=== PATIENT | female | born 1990 | race Caucasian/White ===

== ENCOUNTER 2017-01-17 19:37 | Emergency (ER) | payer MEDICAID, OTHER ==
[2017-01-17 19:39] VITALS: BP 134/74; PULSE 114; RESP 20; TEMP 98.1; O2SAT 99
[2017-01-17 21:09] LABS: AUTOMATED NEUTROPHIL # 8.2 TH/MM3 (1.8-7.7); BASOPHIL % 0.4 % (0.0-2.0); EOSINOPHIL % 0.2 % (0.0-4.0); HEMO FLAGS DIFF FINAL; LYMPH % 14.3 % (9.0-44.0); LYMPHOCYTE # 1.5 TH/MM3 (1.0-4.8); MEAN CELL VOLUME 97.1 FL (80.0-100.0); MEAN CORPUSCULAR HEMOGLOBIN 33.2 PG (27.0-34.0); MEAN CORPUSCULAR HGB CONC 34.2 % (32.0-36.0); MONO % 4.9 % (0.0-8.0); NEUT % 80.2 % (16.0-70.0); PLATELET COUNT 259 TH/MM3 (150-450); RED BLOOD COUNT 4.43 MIL/MM3 (4.00-5.30); RED CELL DISTRIBUTION WIDTH 12.6 % (11.6-17.2); WHITE BLOOD COUNT 10.2 TH/MM3 (4.0-11.0)
[2017-01-17 21:38] LABS: ANION GAP 7 MEQ/L (5-15)
[2017-01-17 21:42] LABS: ALKALINE PHOSPHATASE 51 U/L (45-117); ALT (GPT) 17 U/L (10-53); AST (GOT) 10 U/L (15-37); BLOOD UREA NITROGEN 9 MG/DL (7-18); CHLORIDE 104 MEQ/L (98-107); GLOMERULAR FILTRATION RATE 79 ML/MIN (>89); POTASSIUM 3.8 MEQ/L (3.5-5.1); SODIUM (NA) 138 MEQ/L (136-145); TOTAL BILIRUBIN ADULT 1.8 MG/DL (0.2-1.0)
[2017-01-17 21:46] LABS: AMPHETAMINE, URINE NEG (NEG); BARBITURATES, URINE NEG (NEG); COCAINE, URINE NEG (NEG)
--- NOTE | 2017-01-17 21:50 | PD ---
HPI Chief Complaint: Psychiatric Symptoms Time Seen by Provider: 21:43 Travel History International Travel<30 days: No Contact w/Intl Traveler<30days: No Traveled to known affect area: No History of Present Illness HPI 26 year old white female presents to emergency department with her mother for evaluation. The patient and her mother are requesting a psychological evaluation. According to the patient she's been feeling increasingly depressed and having hallucinations. She states that she is hearing voices persecution. She admits to having suicidal thoughts but no plan. Mother states that she seems delusional and seems to be having some adventism preoccupation. She states that she had stated that she was going to lay her life down for God. Patient denies any known psychiatric problems. She reports hitting her head with a car door last week when she opened it up abruptly. No syncope. She states that her head did hurt initially but that did resolve. No neck or back pain. No numbness, tingling or weakness. No other medical complaints. She denies any drug use currently. She states that she has smoked marijuana, drank alcohol in the past. She does not smoke.. Denies . She states that her last period was approximately one month ago and she performed a urine test this week and was negative. No homicidal ideation. No toxic ingestions. PFSH Past Medical History Medical History: Denies Significant Hx Diminished Hearing: No Tetanus Vaccination: < 5 Years ?: Not Past Surgical History Surgical History: No Previous Surgery Social History Alcohol Use: Yes (occas) Tobacco Use: No Substance Use: No Allergies-Medications (Allergen,Severity, Reaction): Coded Allergies: No Known Allergies (Verified , 01/17/17) Reported Meds & Prescriptions Reported Meds & Active Scripts Active No Active Prescriptions or Reported Medications Review of Systems Except as stated in HPI: all other systems reviewed are Neg Psychiatric: Positive: Depression, Suicidal Ideations, Disorder of Thought, Mood Disorder, No: Anxiety, Substance Abuse, Homicidal Ideation Physical Exam Narrative GENERAL: Well-nourished, well-developed patient. SKIN: Warm and dry. HEAD: Normocephalic and atraumatic. EYES: No scleral icterus. No injection or drainage. ENT: No nasal drainage noted. Mucous membranes pink. Airway patent. NECK: Supple, trachea midline. Moves head freely without obvious discomfort. CARDIOVASCULAR: Regular rate and rhythm without murmurs, gallops, or rubs. RESPIRATORY: Breath sounds equal bilaterally. No accessory muscle use. GASTROINTESTINAL: Abdomen soft, non-tender, nondistended. EXTREMITIES: No cyanosis or edema. BACK: Nontender without obvious deformity. No CVA tenderness. NEURO: Patient is alert and oriented. no sensorimotor deficits. Nonfocal. Normal speech. PSYCH: Positive delusions at times. Positive auditory hallucinations. No visual hallucinations. Data Data Last Documented VS Vital Signs Date Time Temp Pulse Resp B/P Pulse Ox O2 Delivery O2 Flow Rate FiO2 01/17/17 19:39 98.1 114 20 134/74 99 Orders Complete Blood Count With Diff (01/17/17 20:20) Comprehensive Metabolic Panel (01/17/17 20:20) Psych Screen (01/17/17 20:20) Drug Screen, Random Urine (01/17/17 20:20) Alcohol (Ethanol) (01/17/17 20:20) Ed Urine Pregnancytest Poc (01/17/17 22:12) Labs Laboratory Tests Test 01/17/17 01/17/17 20:08 20:25 Urine Opiates Screen NEG Urine Barbiturates Screen NEG Urine Amphetamines Screen NEG Urine Benzodiazepines Screen NEG Urine Cocaine Screen NEG Urine Cannabinoids Screen POS White Blood Count 10.2 TH/MM3 Red Blood Count 4.43 MIL/MM3 Hemoglobin 14.7 GM/DL Hematocrit 43.0 % Mean Corpuscular Volume 97.1 FL Mean Corpuscular Hemoglobin 33.2 PG Mean Corpuscular Hemoglobin 34.2 % Concent Red Cell Distribution Width 12.6 % Platelet Count 259 TH/MM3 Mean Platelet Volume 8.8 FL Neutrophils (%) (Auto) 80.2 % Lymphocytes (%) (Auto) 14.3 % Monocytes (%) (Auto) 4.9 % Eosinophils (%) (Auto) 0.2 % Basophils (%) (Auto) 0.4 % Neutrophils # (Auto) 8.2 TH/MM3 Lymphocytes # (Auto) 1.5 TH/MM3 Monocytes # (Auto) 0.5 TH/MM3 Eosinophils # (Auto) 0.0 TH/MM3 Basophils # (Auto) 0.0 TH/MM3 CBC Comment DIFF FINAL Differential Comment Sodium Level 138 MEQ/L Potassium Level 3.8 MEQ/L Chloride Level 104 MEQ/L Carbon Dioxide Level 27.0 MEQ/L Anion Gap 7 MEQ/L Blood Urea Nitrogen 9 MG/DL Creatinine 0.87 MG/DL Estimat Glomerular Filtration 79 ML/MIN Rate Random Glucose 93 MG/DL Calcium Level 9.4 MG/DL Total Bilirubin 1.8 MG/DL Aspartate Amino Transf 10 U/L (AST/SGOT) Alanine Aminotransferase 17 U/L (ALT/SGPT) Alkaline Phosphatase 51 U/L Total Protein 7.5 GM/DL Albumin 4.5 GM/DL Ethyl Alcohol Level LESS THAN 3 MG/DL MDM Medical Decision Making Medical Screen Exam Complete: Yes Emergency Medical Condition: Yes Medical Record Reviewed: Yes Interpretation(s) Laboratory Tests Test 01/17/17 01/17/17 20:08 20:25 Urine Opiates Screen NEG Urine Barbiturates Screen NEG Urine Amphetamines Screen NEG Urine Benzodiazepines Screen NEG Urine Cocaine Screen NEG Urine Cannabinoids Screen POS White Blood Count 10.2 TH/MM3 Red Blood Count 4.43 MIL/MM3 Hemoglobin 14.7 GM/DL Hematocrit 43.0 % Mean Corpuscular Volume 97.1 FL Mean Corpuscular Hemoglobin 33.2 PG Mean Corpuscular Hemoglobin 34.2 % Concent Red Cell Distribution Width 12.6 % Platelet Count 259 TH/MM3 Mean Platelet Volume 8.8 FL Neutrophils (%) (Auto) 80.2 % Lymphocytes (%) (Auto) 14.3 % Monocytes (%) (Auto) 4.9 % Eosinophils (%) (Auto) 0.2 % Basophils (%) (Auto) 0.4 % Neutrophils # (Auto) 8.2 TH/MM3 Lymphocytes # (Auto) 1.5 TH/MM3 Monocytes # (Auto) 0.5 TH/MM3 Eosinophils # (Auto) 0.0 TH/MM3 Basophils # (Auto) 0.0 TH/MM3 CBC Comment DIFF FINAL Differential Comment Sodium Level 138 MEQ/L Potassium Level 3.8 MEQ/L Chloride Level 104 MEQ/L Carbon Dioxide Level 27.0 MEQ/L Anion Gap 7 MEQ/L Blood Urea Nitrogen 9 MG/DL Creatinine 0.87 MG/DL Estimat Glomerular Filtration 79 ML/MIN Rate Random Glucose 93 MG/DL Calcium Level 9.4 MG/DL Total Bilirubin 1.8 MG/DL Aspartate Amino Transf 10 U/L (AST/SGOT) Alanine Aminotransferase 17 U/L (ALT/SGPT) Alkaline Phosphatase 51 U/L Total Protein 7.5 GM/DL Albumin 4.5 GM/DL Ethyl Alcohol Level LESS THAN 3 MG/DL Differential Diagnosis MDM: High Differential diagnoses: Schizophrenia, schizoaffective disorder, bipolar, anxiety, depression, adjustment reaction, mood disorder NOS, ODD, depressive disorder NOS, dementia, dementia with agitation, psychosis NOS, substance induced mood disorder, intermittent explosive disorder, Asperger syndrome, infection,electrolyte abnormality, malingering. Mental health screening discussed with the patient. Psychiatric screen ordered. Narrative Course Mental health screening discussed with the patient. Psychiatric screen ordered. The patient's been medically cleared. This is medical clearance for psychological evaluation Diagnosis Primary Impression: medical clearance for psychological evaluation Scripts No Active Prescriptions or Reported Meds Condition: Stable Tamir Torres Jan 17, 2017 21:50
== END 2017-01-17 23:31 | disposition home or self-care (01) ==
LOC: NEPD 19:37
DX: R45.851 Suicidal ideations (principal)
CPT/HCPCS: 80053; 80307; 85025; 99283

== ENCOUNTER 2017-01-18 15:20 | Inpatient (IN) | payer MEDICAID, OTHER ==
[~2017-01-18] VITALS: Ht 154.9 cm; Wt 61.5 kg
[2017-01-18 15:22] VITALS: BP 114/77; PULSE 96; RESP 16; TEMP 98.1; O2SAT 99
--- NOTE | 2017-01-18 15:47 | PD ---
Physical Exam Time Seen by Provider: 15:44 Narrative 26yo c/o auditory hallucinations 1-2 months. Voices telling her she can't sleep , can't eat, and to hurts herself. Positive thoughts of suicide. Does not have a plan. Denies drug, ETOH. Was here last night and the left because she was scared of the doctor. Patient stable. Patient seen in triage. Awaiting bed placement. Data Data Last Documented VS Vital Signs Date Time Temp Pulse Resp B/P Pulse Ox O2 Delivery O2 Flow Rate FiO2 01/18/17 15:22 98.1 96 16 114/77 99 MDM Supervised Visit with THIEN: No Scripts No Active Prescriptions or Reported Meds Zaira Sanches Jan 18, 2017 15:46
[2017-01-18 17:07] LABS: BACTERIA, URINE RARE /hpf; BLOOD, URINE TRACE (NEG); COMMENT (UR) CULT NOT INDICATED; CULTURE IF INDICATED CULT NOT INDICATED; GLUCOSE,URINE NEG (NEG); KETONE, URINE 10 mg/dL (NEG); MUCUS URINE FEW /lpf (OCC); NITRITE,URINE NEG (NEG); PH, URINE 5.5 (5.0-8.5); SQUAMOUS EPITHELIAL CELL URINE <1 /hpf (0-5); URINE COLOR LIGHT-YELLOW (YELLW/STRAW)
[2017-01-18 17:13] LABS: AMPHETAMINE, URINE NEG (NEG); BARBITURATES, URINE NEG (NEG); COCAINE, URINE NEG (NEG)
[2017-01-18 17:14] LABS: AUTOMATED NEUTROPHIL # 8.5 TH/MM3 (1.8-7.7); BASOPHIL % 0.3 % (0.0-2.0); EOSINOPHIL # 0.1 TH/MM3 (0-0.4); EOSINOPHIL % 0.6 % (0.0-4.0); HEMATOCRIT 43.2 % (35.0-46.0); HEMO FLAGS DIFF FINAL; LYMPH % 25.1 % (9.0-44.0); LYMPHOCYTE # 3.2 TH/MM3 (1.0-4.8); MEAN CELL VOLUME 95.8 FL (80.0-100.0); MEAN CORPUSCULAR HEMOGLOBIN 33.2 PG (27.0-34.0); MEAN CORPUSCULAR HGB CONC 34.7 % (32.0-36.0); MONO % 7.4 % (0.0-8.0); NEUT % 66.6 % (16.0-70.0); PLATELET COUNT 288 TH/MM3 (150-450); RED CELL DISTRIBUTION WIDTH 12.6 % (11.6-17.2); WHITE BLOOD COUNT 12.7 TH/MM3 (4.0-11.0)
[2017-01-18 17:24] LABS: ALT (GPT) 18 U/L (10-53); ANION GAP 9 MEQ/L (5-15); AST (GOT) 11 U/L (15-37); BICARBONATE 25.4 MEQ/L (21.0-32.0); BLOOD UREA NITROGEN 8 MG/DL (7-18); CHLORIDE 104 MEQ/L (98-107); GLOMERULAR FILTRATION RATE 91 ML/MIN (>89); POTASSIUM 3.8 MEQ/L (3.5-5.1); SODIUM (NA) 138 MEQ/L (136-145)
[2017-01-18 17:26] LABS: ALKALINE PHOSPHATASE 47 U/L (45-117); TOTAL BILIRUBIN ADULT 2.1 MG/DL (0.2-1.0)
--- NOTE | 2017-01-18 17:27 | PD ---
HPI Chief Complaint: Psychiatric Symptoms Time Seen by Provider: 16:00 Travel History International Travel<30 days: No Contact w/Intl Traveler<30days: No Traveled to known affect area: No History of Present Illness HPI Patient is a 26-year-old female presenting to the emergency department for evaluation of suicidal ideations. Patient states that she has been sleeping, she's had decreased appetite for the last week. She reports hearing voices pulling her to kill herself, she reports that she doesn't want to kill herself but she is afraid. She states this started several months ago when she went to a jew with her friend and she stated the concert talking to her. Her auditory hallucinations worsened on Wednesday. Patient does report previous suicide attempt, she attempted to cut her arm. She reports a history of depression, she is a single mother of 2 small children. Patient endorses occasional marijuana use. She denies any physical complaints at this time. PFSH Past Medical History Depression: Yes Diminished Hearing: No ?: Unknown LMP: 01/18/17 : 3 Para: 2 Past Surgical History Surgical History: No Previous Surgery Social History Alcohol Use: No Tobacco Use: No Substance Use: Yes (marijuana last use 01/17/17) Allergies-Medications (Allergen,Severity, Reaction): Coded Allergies: No Known Allergies (Verified , 01/18/17) Reported Meds & Prescriptions Reported Meds & Active Scripts Active No Active Prescriptions or Reported Medications Review of Systems Except as stated in HPI: all other systems reviewed are Neg Psychiatric: Positive: Depression, Suicidal Ideations, Other (visual and auditory hallucinations) Physical Exam Narrative GENERAL: Well-developed, well-nourished, alert female SKIN: Focused skin assessment warm/dry. HEAD: Atraumatic. Normocephalic. EYES: Pupils equal and round. No scleral icterus. No injection or drainage. ENT: No nasal bleeding or discharge. Mucous membranes pink and moist. NECK: Trachea midline. No JVD. CARDIOVASCULAR: Regular rate and rhythm. No murmur appreciated. RESPIRATORY: No accessory muscle use. Clear to auscultation. Breath sounds equal bilaterally. GASTROINTESTINAL: Abdomen soft, non-tender, nondistended. Hepatic and splenic margins not palpable. MUSCULOSKELETAL: No obvious deformities. No clubbing. No cyanosis. No edema. NEUROLOGICAL: Awake and alert. No obvious cranial nerve deficits. Motor grossly within normal limits. Normal speech. PSYCHIATRIC: Appropriate mood and affect; insight and judgment normal. Data Data Last Documented VS Vital Signs Date Time Temp Pulse Resp B/P Pulse Ox O2 Delivery O2 Flow Rate FiO2 01/18/17 15:22 98.1 96 16 114/77 99 Orders Complete Blood Count With Diff (01/18/17 15:50) Comprehensive Metabolic Panel (01/18/17 15:50) Psych Screen (01/18/17 15:50) Drug Screen, Random Urine (01/18/17 15:50) Urinalysis - C+S If Indicated (01/18/17 15:52) Alcohol (Ethanol) (01/18/17 15:52) Salicylates (Aspirin) (01/18/17 15:52) Tylenol (Acetaminophen) (01/18/17 15:52) Diet Regular Basic (01/18/17 Dinner) Labs Laboratory Tests Test 01/18/17 16:15 White Blood Count 12.7 TH/MM3 Red Blood Count 4.50 MIL/MM3 Hemoglobin 15.0 GM/DL Hematocrit 43.2 % Mean Corpuscular Volume 95.8 FL Mean Corpuscular Hemoglobin 33.2 PG Mean Corpuscular Hemoglobin 34.7 % Concent Red Cell Distribution Width 12.6 % Platelet Count 288 TH/MM3 Mean Platelet Volume 9.0 FL Neutrophils (%) (Auto) 66.6 % Lymphocytes (%) (Auto) 25.1 % Monocytes (%) (Auto) 7.4 % Eosinophils (%) (Auto) 0.6 % Basophils (%) (Auto) 0.3 % Neutrophils # (Auto) 8.5 TH/MM3 Lymphocytes # (Auto) 3.2 TH/MM3 Monocytes # (Auto) 0.9 TH/MM3 Eosinophils # (Auto) 0.1 TH/MM3 Basophils # (Auto) 0.0 TH/MM3 CBC Comment DIFF FINAL Differential Comment Urine Color LIGHT-YELLOW Urine Turbidity CLEAR Urine pH 5.5 Urine Specific [place] 1.005 Urine Protein NEG mg/dL Urine Glucose (UA) NEG mg/dL Urine Ketones 10 mg/dL Urine Occult Blood TRACE Urine Nitrite NEG Urine Bilirubin NEG Urine Urobilinogen LESS THAN 2.0 MG/DL Urine Leukocyte Esterase NEG Urine WBC LESS THAN 1 /hpf Urine Squamous Epithelial <1 /hpf Cells Urine Bacteria RARE /hpf Urine Mucus FEW /lpf Microscopic Urinalysis Comment CULT NOT INDICATED Sodium Level 138 MEQ/L Potassium Level 3.8 MEQ/L Chloride Level 104 MEQ/L Carbon Dioxide Level 25.4 MEQ/L Anion Gap 9 MEQ/L Blood Urea Nitrogen 8 MG/DL Creatinine 0.77 MG/DL Estimat Glomerular Filtration 91 ML/MIN Rate Random Glucose 74 MG/DL Calcium Level 9.6 MG/DL Total Bilirubin 2.1 MG/DL Aspartate Amino Transf 11 U/L (AST/SGOT) Alanine Aminotransferase 18 U/L (ALT/SGPT) Alkaline Phosphatase 47 U/L Total Protein 7.3 GM/DL Albumin 4.6 GM/DL Salicylates Level LESS THAN 1.7 MG/DL Urine Opiates Screen NEG Acetaminophen Level LESS THAN 2.0 MCG/ML Urine Barbiturates Screen NEG Urine Amphetamines Screen NEG Urine Benzodiazepines Screen NEG Urine Cocaine Screen NEG Urine Cannabinoids Screen POS Ethyl Alcohol Level LESS THAN 3 MG/DL MDM Medical Decision Making Medical Screen Exam Complete: Yes Emergency Medical Condition: Yes Interpretation(s) Laboratory Tests Test 01/18/17 16:15 White Blood Count 12.7 TH/MM3 Red Blood Count 4.50 MIL/MM3 Hemoglobin 15.0 GM/DL Hematocrit 43.2 % Mean Corpuscular Volume 95.8 FL Mean Corpuscular Hemoglobin 33.2 PG Mean Corpuscular Hemoglobin 34.7 % Concent Red Cell Distribution Width 12.6 % Platelet Count 288 TH/MM3 Mean Platelet Volume 9.0 FL Neutrophils (%) (Auto) 66.6 % Lymphocytes (%) (Auto) 25.1 % Monocytes (%) (Auto) 7.4 % Eosinophils (%) (Auto) 0.6 % Basophils (%) (Auto) 0.3 % Neutrophils # (Auto) 8.5 TH/MM3 Lymphocytes # (Auto) 3.2 TH/MM3 Monocytes # (Auto) 0.9 TH/MM3 Eosinophils # (Auto) 0.1 TH/MM3 Basophils # (Auto) 0.0 TH/MM3 CBC Comment DIFF FINAL Differential Comment Urine Color LIGHT-YELLOW Urine Turbidity CLEAR Urine pH 5.5 Urine Specific [place] 1.005 Urine Protein NEG mg/dL Urine Glucose (UA) NEG mg/dL Urine Ketones 10 mg/dL Urine Occult Blood TRACE Urine Nitrite NEG Urine Bilirubin NEG Urine Urobilinogen LESS THAN 2.0 MG/DL Urine Leukocyte Esterase NEG Urine WBC LESS THAN 1 /hpf Urine Squamous Epithelial <1 /hpf Cells Urine Bacteria RARE /hpf Urine Mucus FEW /lpf Microscopic Urinalysis Comment CULT NOT INDICATED Sodium Level 138 MEQ/L Potassium Level 3.8 MEQ/L Chloride Level 104 MEQ/L Carbon Dioxide Level 25.4 MEQ/L Anion Gap 9 MEQ/L Blood Urea Nitrogen 8 MG/DL Creatinine 0.77 MG/DL Estimat Glomerular Filtration 91 ML/MIN Rate Random Glucose 74 MG/DL Calcium Level 9.6 MG/DL Total Bilirubin 2.1 MG/DL Aspartate Amino Transf 11 U/L (AST/SGOT) Alanine Aminotransferase 18 U/L (ALT/SGPT) Alkaline Phosphatase 47 U/L Total Protein 7.3 GM/DL Albumin 4.6 GM/DL Salicylates Level LESS THAN 1.7 MG/DL Urine Opiates Screen NEG Acetaminophen Level LESS THAN 2.0 MCG/ML Urine Barbiturates Screen NEG Urine Amphetamines Screen NEG Urine Benzodiazepines Screen NEG Urine Cocaine Screen NEG Urine Cannabinoids Screen POS Ethyl Alcohol Level LESS THAN 3 MG/DL Vital Signs Date Time Temp Pulse Resp B/P Pulse Ox O2 Delivery O2 Flow Rate FiO2 01/18/17 15:22 98.1 96 16 114/77 99 Differential Diagnosis Mood disorder versus substance abuse versus malingering versus psychosis versus delirium versus depression versus other Narrative Course Patient is a 26 year old female presenting to him or come for evaluation of suicidal ideations or visual and auditory hallucinations. Vital signs are stable, patient is alert and oriented oriented 3. Patient is in no acute distress has no physical complaints at this time. Labs and psych screen ordered and pending. Urine drug screen positive for marijuana CBC, chemistry, salicylate level, acetaminophen level, alcohol level reviewed and are unremarkable. Patient was transferred to [facility] for further psychiatric screening. Patient is medically cleared at this time for psychiatric evaluation. Diagnosis Primary Impression: Medical clearance for psychiatric admission Scripts No Active Prescriptions or Reported Meds Condition: Stable Basia Zamora [facility] Jan 18, 2017 17:27
[2017-01-18 17:29] LABS: ACETAMINOPHEN LESS THAN 2.0 MCG/ML (10.0-30.0)
[2017-01-18 17:39] VITALS: BP 130/80; PULSE 80; RESP 16; O2SAT 98
[2017-01-18] MEDS ORDERED: diphenhydrAMINE HCL 50 MG CAP PO ONE (19:30)
[2017-01-18] MEDS ORDERED: ACETAMINOPHEN 325 MG TAB PO PRN (20:30)
[2017-01-18] MEDS ORDERED: MAGNESIUM HYDROXIDE SUSP 30 ML CUP PO PRN (20:30)
[2017-01-18] MEDS ORDERED: BENZTROPINE MESYLATE 1 MG TAB PO PRN (20:30)
[2017-01-18] MEDS ORDERED: BENZTROPINE MESYLATE 2 MG/2 ML VIAL IM PRN (20:30)
[2017-01-18] MEDS ORDERED: ZOLPIDEM TARTRATE 5 MG TAB PO PRN (20:30)
[2017-01-18] MEDS ORDERED: ALUMINUM/MAGNESIUM/SIMETH 30 ML CUP PO PRN (20:30)
[2017-01-18] MEDS ORDERED: LORazepam 2 MG/ML VIAL IM PRN (20:30)
[2017-01-18] MEDS: LORazepam 1 MG TAB PO PRN (23:55)
[2017-01-19 06:15] VITALS: BP 101/64; PULSE 97; RESP 16; TEMP 98; O2SAT 97
[2017-01-19] MEDS: NICOTINE 21 MG/24 HR PATCH T-DERMAL SCH (08:44)
[2017-01-19] MEDS: REMOVE OLD PATCH T-DERMAL SCH (08:45)
[2017-01-19 09:27] LABS: BASOPHIL % 0.4 % (0.0-2.0); EOSINOPHIL # 0.1 TH/MM3 (0-0.4); HEMATOCRIT 41.7 % (35.0-46.0); HEMO FLAGS DIFF FINAL; LYMPH % 32.8 % (9.0-44.0); LYMPHOCYTE # 2.3 TH/MM3 (1.0-4.8); MEAN CELL VOLUME 96.4 FL (80.0-100.0); MEAN CORPUSCULAR HEMOGLOBIN 33.2 PG (27.0-34.0); MEAN CORPUSCULAR HGB CONC 34.4 % (32.0-36.0); MONO % 7.9 % (0.0-8.0); NEUT % 57.9 % (16.0-70.0); PLATELET COUNT 249 TH/MM3 (150-450); RED BLOOD COUNT 4.33 MIL/MM3 (4.00-5.30); RED CELL DISTRIBUTION WIDTH 12.7 % (11.6-17.2)
[2017-01-19] MEDS: LORazepam 1 MG TAB PO PRN (10:13)
[2017-01-19 10:15] LABS: ANION GAP 9 MEQ/L (5-15); BICARBONATE 27.3 MEQ/L (21.0-32.0); BLOOD UREA NITROGEN 8 MG/DL (7-18); CHLORIDE 106 MEQ/L (98-107); GLOMERULAR FILTRATION RATE 95 ML/MIN (>89); LDL CHOLESTEROL 65 MG/DL (0-99); POTASSIUM 3.7 MEQ/L (3.5-5.1); SODIUM (NA) 142 MEQ/L (136-145)
[2017-01-19 10:29] LABS: HEMOGLOBIN A1a 1.1 %; HEMOGLOBIN A1b 0.7 %; HEMOGLOBIN Ao 86.5 %; HEMOGLOBIN F 1.5 %; HEMOGLOBIN LA1C 1.8 %; HEMOGLOBIN P3 3.3 %
--- NOTE | 2017-01-19 11:30 | HHI.HP ---
Provisional Diagnosis Admission Date Jan 18, 2017 at 20:27 [place] I. Adjustment disorder with mixed disturbance of emotion and conduct. Certification of Person's Competence To Provide Express and Informed Consent I have personally examined Ann Marie Bae , a person being served at [facility] on, Jan 19, 2017 11:26. Express and informed consent means consent voluntarily given in writing, by a competent person, after sufficient explanation and disclosure of the subject matter involved to enable the person to make a knowing and willful decision without any element of force, fraud, deceit, duress, or other form of constraint or coercion. This person is 18 years of age or older, is not now known to be incompetent to consent to treatment with a guardian advocate, and does not have a health care surrogate or proxy currently making medical treatment decisions. I have found this person to be one of the following: [X] Competent to provide express and informed consent, as defined above, for voluntary admission to this facility and is competent to provide express and informed consent for treatment. He/she has the consistent capacity to make well reasoned, willful, and knowing decisions concerning his or her medical or mental health treatment. The person fully and consistently understands the purpose of the admission for examination/placement and is fully capable of personally exercising all rights [place] Incompetent to provide express and informed consent to voluntary admission, and this is incompetent to provide express and informed consent to treatment. The person must be transferred to involuntary status and a petition for a guardian advocate filed with the Circuit Court. [] Refusing to provide express and informed consent to voluntary admission but is competent to provide express and informed consent for treatment. The person must be discharged or transferred to involuntary status. Form shall be completed within 24 hours of a person's arrival at the receiving facility and filed in the clinical record of each person: 1. Admitted on a voluntary basis 2. Permitted to provide express and informed consent to his/her own treatment 3. Allowed to transfer from involuntary to voluntary status 4. Prior to permitting a person to consent to his or her own treatment after having been previously found incompetent to consent to treatment. History of Present Illness Capacity: Has Capacity HPI This is a 26-year-old female admitted for reported auditory hallucinations telling her to harm herself. She does not have a history of hallucinations or delusions and is currently denying a desire to kill herself. She does feel that she is remarkably stressed. She is a single mother of a 5 and 6-year-old children. She works 40 hours per week at [employer]. She has limited support from family members but the children's father and the patient's mother do step in to care for the children when the patient is currently in the hospital. Patient does admit to depressed mood, anhedonia, anxiety, low self-esteem, diminished energy, recent suicidal ideation, and social withdrawal. However, she is wanting to see her children and agreed to be placed on antidepressant medicine with the idea that she could be discharged tomorrow. Review of Systems ROS Limitations: Clinical Condition Past Psych History Psychological trauma history Denies Violence risk - others (6 mos) Minimal Violence risk - self (6 mos) Minimal to moderate Substance Abuse History Drugs/Alcohol past 12 months Denies Past Family Social History Coded Allergies: No Known Allergies (Verified , 01/18/17) No Active Prescriptions or Reported Meds Current Medications Medications (Trade) Dose Ordered Sig/Edmond Route Start Time Stop Time Status Last Admin (Ativan) 1 mg Q6H PRN PO 01/18/17 20:30 01/19/17 10:13 (Ativan Inj) 1 mg Q6H PRN IM 01/18/17 20:30 (Tylenol) 650 mg Q4H PRN PO 01/18/17 20:30 (Milk Of Magnesia Liq) 30 ml DAILY PRN PO 01/18/17 20:30 (Mag-Al Plus Susp Liq) 30 ml Q6H PRN PO 01/18/17 20:30 (Habitrol 21 Mg Patch.24 Hr) 1 patch DAILY T-DERMAL 01/19/17 09:00 (Cogentin) 1 mg Q12H PRN PO 01/18/17 20:30 (Cogentin Inj) 1 mg Q12H PRN IM 01/18/17 20:30 Miscellaneous Information 1 DAILY T-DERMAL 01/19/17 09:00 (Ambien) 5 mg HS PRN PO 01/18/17 20:30 Physical Exam GENERAL: SKIN: Warm and dry. HEAD: Normocephalic. EYES: No scleral icterus. No injection or drainage. NECK: Supple, trachea midline. No JVD or lymphadenopathy. CARDIOVASCULAR: Regular rate and rhythm without murmurs, gallops, or rubs. RESPIRATORY: Breath sounds equal bilaterally. No accessory muscle use. GASTROINTESTINAL: Abdomen soft, non-tender, nondistended. MUSCULOSKELETAL: No cyanosis, or edema. BACK: Nontender without obvious deformity. No CVA tenderness. Vital Signs Vital Signs Date Time Temp Pulse Resp B/P Pulse Ox O2 Delivery O2 Flow Rate FiO2 01/19/17 06:15 98.0 97 16 101/64 97 01/18/17 17:39 Room Air Mental Status Examination Speech: Unremarkable Orientation: x3 Memory: Unremarkable Thought Process: Organized, Goal Directed Thought Content: Unremarkable Hallucination Type: None Attention and Concentration: Good Suicidal Ideation: No Previous Suicide Attempts: No Homicidal Ideation: No Previous Homicide Attempts: No Insight: Fair Judgment: WNL Affect: Anxious, Sad Mood: Sad, Anxious Motor Activity: Normal gait Assessment & Plan Problem List: (1) Adjustment disorder with mixed disturbance of emotions and conduct ICD Code: F43.25 Assessment & Plan Estimated LOS: 2 days patient to be started on Prozac and hopefully will tolerate medicine well. She will participate in individual and group therapies today. If she wants to leave tomorrow with Prozac prescription, this physician will support that plan. Patient can be followed up on an outpatient basis. Don Pickett MD Jan 19, 2017 11:30
[2017-01-19] MEDS: FLUoxetine HCL 10 MG CAP PO SCH (12:00)
[2017-01-19 20:00] VITALS: BP 111/79; PULSE 85; RESP 16; TEMP 97.9
[2017-01-20] MEDS: LORazepam 1 MG TAB PO PRN ×2 (01:59→14:36)
[2017-01-20 06:08] VITALS: BP 96/54; PULSE 81; RESP 18; TEMP 97.6; O2SAT 98
[2017-01-20] MEDS: FLUoxetine HCL 10 MG CAP PO SCH (08:41)
[2017-01-20] MEDS: REMOVE OLD PATCH T-DERMAL SCH (09:00)
[2017-01-20] MEDS: NICOTINE 21 MG/24 HR PATCH T-DERMAL SCH (09:00)
--- NOTE | 2017-01-20 14:57 | HHI.DS ---
Psychiatry Discharge Summary Inpatient Psychiatric care?: Yes Advance Directive: No Reason Not Provided: Due to Patient Condition Mental Health AdvanceDirective: No Health Care Proxy: No Admission Admission Date Jan 18, 2017 at 20:27 Admission Diagnosis: (1) Adjustment disorder with mixed disturbance of emotions and conduct ICD Code: F43.25 Brief History This is a 26-year-old female admitted for reported auditory hallucinations telling her to harm herself. She does not have a history of hallucinations or delusions and is currently denying a desire to kill herself. She does feel that she is remarkably stressed. She is a single mother of a 5 and 6-year-old children. She works 40 hours per week at [employer]. She has limited support from family members but the children's father and the patient's mother do step in to care for the children when the patient is currently in the hospital. Patient does admit to depressed mood, anhedonia, anxiety, low self-esteem, diminished energy, recent suicidal ideation, and social withdrawal. However, she is wanting to see her children and agreed to be placed on antidepressant medicine with the idea that she could be discharged tomorrow. Tobacco Use In Past 30 Days: No Tobacco Past 30 Days Alcohol Use: Never Hospital Course Participated in individual and group therapies. No procedures were performed. She was started on antidepressant medicine and given a prescription for Abilify as she was leaving. This was per her request. Informed consent was given. Results Blood Pressure 96 / 54 Vital Signs Date Time Temp Pulse Resp B/P Pulse Ox O2 Delivery O2 Flow Rate FiO2 01/20/17 06:08 97.6 81 18 96/54 98 01/18/17 17:39 Room Air Laboratory Tests Test 01/18/17 01/19/17 16:15 07:59 White Blood Count 12.7 TH/MM3 (4.0-11.0) Neutrophils # (Auto) 8.5 TH/MM3 (1.8-7.7) Urine Ketones 10 mg/dL (NEG) Urine Occult Blood TRACE (NEG) Urine Bacteria RARE /hpf (NONE) Urine Mucus FEW /lpf (OCC) Total Bilirubin 2.1 MG/DL (0.2-1.0) Aspartate Amino Transf 11 U/L (15-37) (AST/SGOT) Salicylates Level LESS THAN 1.7 MG/DL (2.8-20.0) Acetaminophen Level LESS THAN 2.0 MCG/ML (10.0-30.0) Urine Cannabinoids Screen POS (NEG) HDL Cholesterol 70.0 MG/DL (40.0-60.0) Laboratory Results Test 01/19/17 07:59 Hemoglobin A1c 4.8 % (4.3-6.0) Triglycerides Level 42 MG/DL (42-150) Cholesterol Level 143 MG/DL (120-200) LDL Cholesterol 65 MG/DL (0-99) HDL Cholesterol 70.0 MG/DL (40.0-60.0) Summary of Procedures None Pending results at discharge: No Medications # of Antipsychotic meds at D/C: 1 Appropriate >1 Antipsych meds?: 1 Approp Antipsych med options 1 - Minimum of three failed multiple trials of monotherapy. 2 - Documented plan to taper to monotherapy due to previous use of multiple meds OR cross-taper in progress at D/C. 3 - Documentation of augmentation of Clozapine. 4 - Justification other than those listed in allowable values 1-3, document here : Discharge Discharge Date: Jan 20, 2017 Discharge Diagnosis: (1) Adjustment disorder with mixed disturbance of emotions and conduct ICD Code: F43.25 Mental Status Exam at Disch No suicidal or homicidal ideation, plan or intent seen at the time of discharge. Patient complained of hearing God's voice in her head and for that reason was given a prescription for Abilify. However, this physician saw no evidence that the patient was actually responding to internal stimuli. Instead , this was felt to be more likely an anxiety response. In either event, it was felt the Abilify would help. Pt Condition on Discharge: Stable Discharge Disposition: Discharge Home Discharge Instructions Diet Instructions: As Tolerated, No Restrictions Activities you can perform: Regular-No Restrictions Discharge Time <= 30 minutes Discharge/Advance Care Plan Health Problems: (1) Adjustment disorder with mixed disturbance of emotions and conduct Goals to promote your health * To prevent worsening of your condition and complications * To maintain your health at the optimal level Directions to meet your goals Take your medications as prescribed Follow your dietary instruction Follow activity as directed Keep your appointments as scheduled Take your immunizations and boosters as scheduled If your symptoms worsen call your PCP, if no PCP go to Urgent Care Center or Emergency Room For 19/04 questions related to your inpatient stay or results of tests pending at discharge, please contact Dr. Don Pickett at Smoking is Dangerous to Your Health. Avoid second hand smoking Don Pickett MD Jan 20, 2017 14:57
[2017-01-20] MEDS ORDERED: ABIL2TAB2 PO (15:00)
[2017-01-20] MEDS ORDERED: AMBI5TAB PO (15:00)
[2017-01-20] MEDS ORDERED: FLUO-1 PO (15:00)
== END 2017-01-20 17:30 | disposition home or self-care (01) | DRG 882 ==
LOC: NEPD 15:20 → NEDA 20:27 → H260 22:22
PROVIDERS: ADMIT Psychiatry & Neurology Psychiatry; ATTEND Psychiatry & Neurology Psychiatry
DX: F43.25 Adjustment disorder with mixed disturbance of emotions and conduct (principal)
CPT/HCPCS: 80048; 80053; 80061; 80307; 81001; 83036; 84443; 84703; 85025; 99283; 99284

== ENCOUNTER 2017-02-09 13:30 | Emergency (ER) | payer MEDICAID ==
[~2017-02-09] VITALS: Ht 157.5 cm; Wt 60.0 kg
[~2017-02-09 13:30] MED LIST: ABIL2TAB2 PO; AMBI5TAB PO; FLUO-1 PO
[2017-02-09 13:32] VITALS: BP 125/70; PULSE 89; RESP 18; TEMP 98.6; O2SAT 99
--- NOTE | 2017-02-09 13:33 | PD ---
Physical Exam Time Seen by Provider: 13:32 Narrative 26 y/o female presents requesting refill of prozac, started late december, rx by Dr. Pickett. Vital signs reviewed. Seen at triage desk. Awaiting bed placement. Data Data Last Documented VS Vital Signs Date Time Temp Pulse Resp B/P Pulse Ox O2 Delivery O2 Flow Rate FiO2 02/09/17 13:32 98.6 89 18 125/70 99 Room Air [facility] Medical Record Reviewed: Yes Supervised Visit with THIEN: Parish Oreilly February 09, 2017 13:33
--- NOTE | 2017-02-09 13:48 | PD ---
HPI Chief Complaint: Medication Refill Request Time Seen by Provider: 13:46 Travel History International Travel<30 days: No Contact w/Intl Traveler<30days: No Traveled to known affect area: No History of Present Illness HPI 26-year-old female presents to the emergency department seeking refill on Prozac for depression. She has an appointment next but cannot wait that long for medication refill. She denies suicidal or homicidal ideations. Denies hallucinations. Is requesting to see psychiatry for medication refill. Last took the medication yesterday. Reports having sensitivity to light and headache from not taking her medication. Has no other medical complaints. No known allergies. No other modifying factors or associated signs and symptoms. PFSH Past Medical History Depression: Yes Diminished Hearing: No ?: Not : 3 Para: 2 Social History Alcohol Use: No Tobacco Use: No Substance Use: No Allergies-Medications (Allergen,Severity, Reaction): Coded Allergies: No Known Allergies (Verified , 01/18/17) Reported Meds & Prescriptions Reported Meds & Active Scripts Active Abilify (Aripiprazole) 2 Mg Tab 2 Mg PO DAILY@0600 Prozac (Fluoxetine HCl) 10 Mg Cap 10 Mg PO DAILY Ambien (Zolpidem Tartrate) 5 Mg Tab 5 Mg PO HS PRN Review of Systems Except as stated in HPI: all other systems reviewed are Neg Physical Exam Narrative GENERAL: Well-nourished, well-developed female patient, in no acute distress SKIN: Warm and dry. HEAD: Atraumatic. Normocephalic. EYES: Pupils equal and round. No scleral icterus. No injection or drainage. ENT: Mucosa pink and moist. Airway patent. NECK: Trachea midline. CARDIOVASCULAR: Regular rate. RESPIRATORY: No accessory muscle use. GASTROINTESTINAL: Flat. MUSCULOSKELETAL: No obvious deformities. No clubbing. No cyanosis. No edema. NEUROLOGICAL: Awake and alert. Oriented 3. No obvious cranial nerve deficits. Motor grossly within normal limits. Normal speech. PSYCHIATRIC: Appropriate mood and affect; insight and judgment normal. Data Data Last Documented VS Vital Signs Date Time Temp Pulse Resp B/P Pulse Ox O2 Delivery O2 Flow Rate FiO2 02/09/17 13:32 98.6 89 18 125/70 99 Room Air Orders Complete Blood Count With Diff (02/09/17 13:44) Basic Metabolic Panel (Bmp) (02/09/17 13:44) Psych Screen (02/09/17 13:44) Drug Screen, Random Urine (02/09/17 13:44) MDM Medical Decision Making Medical Screen Exam Complete: Yes Emergency Medical Condition: Yes Medical Record Reviewed: Yes Differential Diagnosis Medication refill, medical clearance for psychiatric admission, medical clearance Narrative Course Patient presents voluntarily. Physical examination and vital signs are essentially unremarkable. Ibuprofen ordered for complaint of headache. Psych screen has been ordered. If the laboratory results are unremarkable, the patient will be medically cleared for psychiatric evaluation and disposition. Diagnosis Primary Impression: Medical clearance for psychiatric admission Condition: Stable Zaira Sanches February 09, 2017 13:48
[2017-02-09] MEDS ORDERED: IBUPROFEN 800 MG TAB PO ONE (14:00)
[2017-02-09 14:30] LABS: AUTOMATED NEUTROPHIL # 6.3 TH/MM3 (1.8-7.7); BASOPHIL % 0.2 % (0.0-2.0); EOSINOPHIL # 0.1 TH/MM3 (0-0.4); EOSINOPHIL % 0.8 % (0.0-4.0); HEMATOCRIT 43.2 % (35.0-46.0); HEMO FLAGS DIFF FINAL; LYMPH % 26.3 % (9.0-44.0); LYMPHOCYTE # 2.5 TH/MM3 (1.0-4.8); MEAN CELL VOLUME 96.4 FL (80.0-100.0); MEAN CORPUSCULAR HEMOGLOBIN 34.2 PG (27.0-34.0); MEAN CORPUSCULAR HGB CONC 35.5 % (32.0-36.0); MONO % 6.2 % (0.0-8.0); NEUT % 66.5 % (16.0-70.0); PLATELET COUNT 260 TH/MM3 (150-450); RED BLOOD COUNT 4.49 MIL/MM3 (4.00-5.30); RED CELL DISTRIBUTION WIDTH 12.9 % (11.6-17.2); WHITE BLOOD COUNT 9.5 TH/MM3 (4.0-11.0)
[2017-02-09 14:35] LABS: AMPHETAMINE, URINE NEG (NEG); BARBITURATES, URINE NEG (NEG); COCAINE, URINE NEG (NEG)
--- NOTE | 2017-02-09 14:40 | PD ---
History of Present Illness Chief Complaint: Medication Refill Request Time Seen by Provider: 14:30 Travel History International Travel<30 Days: No Contact w/Intl Traveler<30days: No Known affected area: No Legal Status Legal Status: Voluntary History of Present Illness: History of Present Illness HPI 26-year-old female with history of anxiety and depression who presents to the emergency department seeking refill on Prozac for depression. Patient was discharged from [facility] on January 20, 2017 and received only a 10 day supply of Prozac. Her appointment at [facility] is not until this and she does not want to interrupt her treatment. She denies suicidal or homicidal ideations. Denies hallucinations. Has no other medical complaints.symptoms. Alert and oriented. no psychosis and no terese. No suicidal or homicidal ideation. reports compliance with prescribed medication. PFSH Past Medical History Depression: Yes Diminished Hearing: No Tetanus Vaccination: Unknown Influenza Vaccination: No ?: Not : 3 Para: 2 Psychiatric History Psychiatric History Hx Psychiatric Treatment: [facility] December 2016. History of Inpatient Treatment: Yes Guns or firearms in home: No Social History Single female. Hx Alcohol Use: No Hx Tobacco Use: No Hx Substance Use: No Substance Use Type: Alcohol, Marijuana Hx of Substance Use Treatment: No Family Psychiatric History negative Allergies-Medications (Allergen,Severity, Reaction): Coded Allergies: No Known Allergies (Verified , 01/18/17) Reported Meds & Prescriptions Reported Meds & Active Scripts Active Abilify (Aripiprazole) 2 Mg Tab 2 Mg PO DAILY@0600 Prozac (Fluoxetine HCl) 10 Mg Cap 10 Mg PO DAILY Ambien (Zolpidem Tartrate) 5 Mg Tab 5 Mg PO HS PRN Review of Systems Except as stated in HPI: all other systems reviewed are Neg Psychiatric: COMPLAINS OF: Depression Exam Alert: Yes [place]: Person (ox4) Mood: Calm Affect: Appropriate Speech: Clear, Logical Eye Contact: Normal Memory Intact: Comment (no impairmetn) Hallucinations: Other (negative) Delusions: No Delusion Type: Other (neagtive) Suicidal: Ideation (deneis any) Homicidal: Ideation (deneis any) Insight/Judgement Fair. Not impaired. MDM Medical Decision Making Medical Record Reviewed: Yes Assessment/Plan 26 year old female who presents to ed for refill on her psychiatric medication. She has an appointment on at [facility] but does not want to interrupt her treatment. No other concerns presented. Orders Complete Blood Count With Diff (02/09/17 13:44) Basic Metabolic Panel (Bmp) (02/09/17 13:44) Psych Screen (02/09/17 13:44) Drug Screen, Random Urine (02/09/17 13:44) Ibuprofen (Motrin) (02/09/17 14:00) Results Vital Signs Date Time Temp Pulse Resp B/P Pulse Ox O2 Delivery O2 Flow Rate FiO2 02/09/17 13:32 98.6 89 18 125/70 99 Room Air Laboratory Tests Test 02/09/17 02/09/17 13:53 14:05 White Blood Count 9.5 Red Blood Count 4.49 Hemoglobin 15.4 Hematocrit 43.2 Mean Corpuscular Volume 96.4 Mean Corpuscular Hemoglobin 34.2 Mean Corpuscular Hemoglobin 35.5 Concent Red Cell Distribution Width 12.9 Platelet Count 260 Mean Platelet Volume 8.3 Neutrophils (%) (Auto) 66.5 Lymphocytes (%) (Auto) 26.3 Monocytes (%) (Auto) 6.2 Eosinophils (%) (Auto) 0.8 Basophils (%) (Auto) 0.2 Neutrophils # (Auto) 6.3 Lymphocytes # (Auto) 2.5 Monocytes # (Auto) 0.6 Eosinophils # (Auto) 0.1 Basophils # (Auto) 0.0 CBC Comment DIFF FINAL Differential Comment Urine Opiates Screen NEG Urine Barbiturates Screen NEG Urine Amphetamines Screen NEG Urine Benzodiazepines Screen NEG Urine Cocaine Screen NEG Urine Cannabinoids Screen NEG Diagnosis Primary Impression: Adjustment disorder with mixed disturbance of emotions and conduct Psychiatrically Cleared: Yes Med/ Other Pt Specific Info: Prescription(s) given Prescriptions Fluoxetine (Prozac)10 Mg Cap10 Mg PO DAILY #10 CAP Ref 0 Prov:Margarita Mack 02/09/17 Disposition: 01 DISCHARGE HOME Condition: Stable Leander Mackmiranda GAXIOLA February 09, 2017 14:40
[2017-02-09] MEDS ORDERED: FLUO-1 PO (14:41)
[2017-02-09 14:45] LABS: BICARBONATE 28.5 MEQ/L (21.0-32.0); POTASSIUM 4.1 MEQ/L (3.5-5.1)
[2017-02-09 15:17] VITALS: BP 125/70; PULSE 89; RESP 18; TEMP 98.6; O2SAT 99
[2017-02-09 15:18] VITALS: BP 125/70; TEMP 98.6
== END 2017-02-09 14:55 | disposition home or self-care (01) ==
LOC: NEPJ 13:30
DX: F43.25 Adjustment disorder with mixed disturbance of emotions and conduct (principal); Z79.899 Other long term (current) drug therapy
CPT/HCPCS: 80048; 80307; 85025; 99282

== ENCOUNTER 2017-03-10 10:31 | Emergency (ER) | payer MEDICAID, OTHER ==
[~2017-03-10] VITALS: Ht 154.9 cm; Wt 60.0 kg
[2017-03-10 10:40] VITALS: BP 115/67; PULSE 101; RESP 16; TEMP 98.4; O2SAT 97
--- NOTE | 2017-03-10 11:35 | PD ---
HPI Chief Complaint: Depression Time Seen by Provider: 11:35 Travel History International Travel<30 days: No Contact w/Intl Traveler<30days: No Traveled to known affect area: No History of Present Illness HPI 26-year-old female is brought to the emergency Department under Bellamy act for depression and suicidal ideations. Per the Bellamy act report the patient is undergoing a child custody issue and mentioned to the officer that she is depressed and has thoughts of hurting herself. The patient does state that she does not currently have custody of her children is very upset about that. She denies any suicidal or homicidal ideations. She denies any attempts to harm herself, denies ingestion of substances in an attempt to harm herself. She admits to occasional alcohol use, cocaine use, marijuana use. Denies any history of IV drug use. She denies any medical history. States that her stomach has felt upset today. Denies any other complaints. Denies any fever, chills, nausea, vomiting, diarrhea, constipation, cough or cold symptoms. Denies , last menstrual period 1 month ago. No other complaints. PFSH Past Medical History Bipolar Disorder: Yes Anxiety: Yes Depression: Yes Diminished Hearing: No Psychiatric: Yes Immunizations Current: No Tetanus Vaccination: Unknown Influenza Vaccination: No ?: Not LMP: 02/19/2016 : 3 Para: 2 : 1 Social History Alcohol Use: Yes (ONCE IN A WHILE ) Tobacco Use: Yes (1/2 PPD ) Substance Use: Yes (MARIJUANA) Allergies-Medications (Allergen,Severity, Reaction): Coded Allergies: No Known Allergies (Verified , 03/10/17) Reported Meds & Prescriptions Reported Meds & Active Scripts Active Prozac (Fluoxetine HCl) 10 Mg Cap 10 Mg PO DAILY Abilify (Aripiprazole) 2 Mg Tab 2 Mg PO DAILY@0600 Prozac (Fluoxetine HCl) 10 Mg Cap 10 Mg PO DAILY Ambien (Zolpidem Tartrate) 5 Mg Tab 5 Mg PO HS PRN Review of Systems Except as stated in HPI: all other systems reviewed are Neg Physical Exam Narrative GENERAL: Well-nourished and well-developed female patient in no acute distress who is nontoxic appearing. SKIN: Warm and dry. HEAD: Normocephalic and atraumatic. EYES: No injection, drainage, or hyphema noted. PERRLA. EOMI. ENT: No nasal drainage noted. Oropharynx is clear. NECK: Supple and the trachea is midline. CARDIOVASCULAR: Regular rate and rhythm. RESPIRATORY: Breath sounds are equal bilaterally with no accessory muscle use, wheezing, rhonchi, or crackles. GASTROINTESTINAL: Abdomen is soft, non-tender, and nondistended. No rebound tenderness or guarding. MUSCULOSKELETAL: No obvious deformities, swelling, cyanosis, or ecchymosis is present throughout the upper and lower extremities. Patient has full range of motion without any signs of neurovascular compromise. NEUROLOGICAL: Awake, alert, and oriented. Normal speech and gait. Cranial nerves are grossly intact. Data Data Last Documented VS Vital Signs Date Time Temp Pulse Resp B/P Pulse Ox O2 Delivery O2 Flow Rate FiO2 03/10/17 10:40 98.4 101 16 115/67 97 Orders Complete Blood Count With Diff (03/10/17 11:33) Comprehensive Metabolic Panel (03/10/17 11:33) Ed Urine Pregnancytest Poc (03/10/17 11:33) Psych Screen (03/10/17 11:33) Drug Screen, Random Urine (03/10/17 11:33) Alcohol (Ethanol) (03/10/17 11:33) Lorazepam Inj (Ativan Inj) (03/10/17 12:15) Labs Laboratory Tests Test 03/10/17 03/10/17 10:45 11:30 White Blood Count 6.9 TH/MM3 Red Blood Count 4.21 MIL/MM3 Hemoglobin 14.0 GM/DL Hematocrit 41.4 % Mean Corpuscular Volume 98.3 FL Mean Corpuscular Hemoglobin 33.2 PG Mean Corpuscular Hemoglobin 33.8 % Concent Red Cell Distribution Width 13.1 % Platelet Count 228 TH/MM3 Mean Platelet Volume 8.7 FL Neutrophils (%) (Auto) 65.4 % Lymphocytes (%) (Auto) 26.1 % Monocytes (%) (Auto) 7.7 % Eosinophils (%) (Auto) 0.4 % Basophils (%) (Auto) 0.4 % Neutrophils # (Auto) 4.5 TH/MM3 Lymphocytes # (Auto) 1.8 TH/MM3 Monocytes # (Auto) 0.5 TH/MM3 Eosinophils # (Auto) 0.0 TH/MM3 Basophils # (Auto) 0.0 TH/MM3 CBC Comment DIFF FINAL Differential Comment Sodium Level 141 MEQ/L Potassium Level 3.6 MEQ/L Chloride Level 108 MEQ/L Carbon Dioxide Level 24.6 MEQ/L Anion Gap 8 MEQ/L Blood Urea Nitrogen 9 MG/DL Creatinine 0.64 MG/DL Estimat Glomerular Filtration 112 ML/MIN Rate Random Glucose 79 MG/DL Calcium Level 9.1 MG/DL Total Bilirubin 1.5 MG/DL Aspartate Amino Transf 13 U/L (AST/SGOT) Alanine Aminotransferase 21 U/L (ALT/SGPT) Alkaline Phosphatase 44 U/L Total Protein 6.8 GM/DL Albumin 4.0 GM/DL Ethyl Alcohol Level LESS THAN 3 MG/DL Urine Opiates Screen NEG Urine Barbiturates Screen NEG Urine Amphetamines Screen NEG Urine Benzodiazepines Screen POS Urine Cocaine Screen NEG Urine Cannabinoids Screen POS MDM Medical Decision Making Medical Screen Exam Complete: Yes Emergency Medical Condition: Yes Differential Diagnosis Differential: Depression versus adjustment reaction versus anxiety versus PTSD versus psychosis NOS versus mood disorder NOS versus substance induced mood disorder versus ODD versus adjustment reaction versus schizophrenia versus bipolar disorder versus schizoaffective versus electrolyte abnormality Narrative Course Patient presents under a Bellamy act. Physical examination and vital signs are essentially unremarkable. Patient has no medical complaints to report. Psych screen has been ordered. Labs are unremarkable for any acute abnormalities. Urine tox is positive for benzodiazepines and cannabis. The patient is medically cleared for psychiatric evaluation and disposition. Diagnosis Primary Impression: Mood disorder Zaira Aguilar Mar 10, 2017 11:35
[2017-03-10 11:58] LABS: AUTOMATED NEUTROPHIL # 4.5 TH/MM3 (1.8-7.7); BASOPHIL % 0.4 % (0.0-2.0); EOSINOPHIL % 0.4 % (0.0-4.0); HEMATOCRIT 41.4 % (35.0-46.0); HEMO FLAGS DIFF FINAL; LYMPH % 26.1 % (9.0-44.0); LYMPHOCYTE # 1.8 TH/MM3 (1.0-4.8); MEAN CELL VOLUME 98.3 FL (80.0-100.0); MEAN CORPUSCULAR HEMOGLOBIN 33.2 PG (27.0-34.0); MEAN CORPUSCULAR HGB CONC 33.8 % (32.0-36.0); MONO % 7.7 % (0.0-8.0); NEUT % 65.4 % (16.0-70.0); PLATELET COUNT 228 TH/MM3 (150-450); RED BLOOD COUNT 4.21 MIL/MM3 (4.00-5.30); RED CELL DISTRIBUTION WIDTH 13.1 % (11.6-17.2); WHITE BLOOD COUNT 6.9 TH/MM3 (4.0-11.0)
[2017-03-10] MEDS ORDERED: LORazepam 2 MG/ML VIAL IM ONE ×2 (12:15→20:00)
[2017-03-10 12:16] LABS: AMPHETAMINE, URINE NEG (NEG); BARBITURATES, URINE NEG (NEG); COCAINE, URINE NEG (NEG)
[2017-03-10 12:30] LABS: ALT (GPT) 21 U/L (10-53); ANION GAP 8 MEQ/L (5-15); AST (GOT) 13 U/L (15-37); BICARBONATE 24.6 MEQ/L (21.0-32.0); BLOOD UREA NITROGEN 9 MG/DL (7-18); CHLORIDE 108 MEQ/L (98-107); GLOMERULAR FILTRATION RATE 112 ML/MIN (>89); POTASSIUM 3.6 MEQ/L (3.5-5.1); SODIUM (NA) 141 MEQ/L (136-145)
[2017-03-10 12:43] LABS: ALKALINE PHOSPHATASE 44 U/L (45-117); TOTAL BILIRUBIN ADULT 1.5 MG/DL (0.2-1.0)
[2017-03-10 16:36] VITALS: BP 104/56; PULSE 89; RESP 18; TEMP 97.8; O2SAT 98
[2017-03-10 18:20] VITALS: BP 130/74; PULSE 94; RESP 20; O2SAT 100
[2017-03-10] MEDS ORDERED: OLANZapine IM 10 MG VIAL IM ONE ×2 (19:46→20:00)
[2017-03-10 22:11] VITALS: BP 124/64; PULSE 100; RESP 18; TEMP 99; O2SAT 99
[2017-03-11 02:27] VITALS: BP 113/57; PULSE 68; RESP 17; TEMP 97.6; O2SAT 96
[2017-03-11 06:33] VITALS: BP 99/57; PULSE 70; RESP 17; TEMP 97.8; O2SAT 98
--- NOTE | 2017-03-11 10:07 | PD ---
History of Present Illness Chief Complaint: Depression Time Seen by Provider: 09:45 Travel History International Travel<30 Days: No Contact w/Intl Traveler<30days: No Known affected area: No Legal Status Legal Status: Bellamy Act Bellamy Act Signed By: Oneyda Bellamy Act Comment: BA signed by: BI PATTERSON Badge#[id number], Case#[id number] History of Present Illness: History of Present Illness HPI 26-year-old female with history of adjustment disorder is brought to the emergency Department under Bellamy act initiated by BI for depression and suicidal ideations. Per the Bellamy act report the patient is undergoing a child custody issue and mentioned to the officer that she is depressed and has thoughts of hurting herself. Patient is upset because at this time she does not have custody of her children and she is living in a long term. She did not make any attempts at harming herself. She reported that she had been having EMR is reviewed. She was last evaluated in December and had a brief hospital stay as well. At that time she presented with hallucinations. Patient was monitored in J pod overnight. Las t night she was agitated while she was engaged in a conversation with her mother. She required ETO and slept well. She is calm, engaging and cooperative. Speech is clear and logical. At times she is tearful as she talks about missing her daughters but does acknowledge that she is working towards reuniting with the. . In therms of mood she is depressed with episodes of crying, poor sleep, low level of energy but she does not want to initiate antidepressants. She stopped taking her medications because she did not like how she was feeling while she took them. " I rather smoke a little pot and that helps me". There is no suicidal; or homicidal ideation or intent. No psychosis and no terese. PFSH Past Medical History Bipolar Disorder: Yes Anxiety: Yes Depression: Yes Diminished Hearing: No Psychiatric: Yes Immunizations Current: No Tetanus Vaccination: Unknown Influenza Vaccination: No ?: Not LMP: 02/19/2016 : 3 Para: 2 : 1 Psychiatric History Psychiatric History Hx Psychiatric Treatment: Last admission in December 2016 History of Inpatient Treatment: Yes Social History Hx Alcohol Use: Yes (ONCE IN A WHILE ) Hx Tobacco Use: Yes (1/2 PPD ) Hx Substance Use: Yes (MARIJUANA) Substance Use Type: Alcohol, Marijuana Hx of Substance Use Treatment: No Family Psychiatric History Negative Allergies-Medications (Allergen,Severity, Reaction): Coded Allergies: No Known Allergies (Verified , 03/10/17) Reported Meds & Prescriptions Reported Meds & Active Scripts Active Prozac (Fluoxetine HCl) 10 Mg Cap 10 Mg PO DAILY Abilify (Aripiprazole) 2 Mg Tab 2 Mg PO DAILY@0600 Prozac (Fluoxetine HCl) 10 Mg Cap 10 Mg PO DAILY Ambien (Zolpidem Tartrate) 5 Mg Tab 5 Mg PO HS PRN Review of Systems Except as stated in HPI: all other systems reviewed are Neg Exam Alert: Yes [place]: Person (ox4) Mood: Anxious, Depressed Affect: Tearful Speech: Clear, Logical Eye Contact: Normal Memory Intact: Comment (no impairmetn) Hallucinations: Other (Negative) Delusions: No Suicidal: Ideation (deneis any) Homicidal: Ideation (deneis millie) Insight/Judgement Poor. Not impaired. MDM Medical Decision Making Medical Record Reviewed: Yes Assessment/Plan 26 year old female with hx of adjustment disorder who presented with no suicidality, no psychosis, no terese. She did present with depressed mood but is not accepting of medication or inpatient treatment at this time. She does not meet BA criteria Lift BA. Discharge home. Orders Complete Blood Count With Diff (03/10/17 11:33) Comprehensive Metabolic Panel (03/10/17 11:33) Ed Urine Pregnancytest Poc (03/10/17 11:33) Psych Screen (03/10/17 11:33) Drug Screen, Random Urine (03/10/17 11:33) Alcohol (Ethanol) (03/10/17 11:33) Lorazepam Inj (Ativan Inj) (03/10/17 12:15) Diet Regular Basic (03/10/17 Dinner) Olanzapine Inj (Zyprexa Inj) (03/10/17 19:46) Lorazepam Inj (Ativan Inj) (03/10/17 20:00) Olanzapine Inj (Zyprexa Inj) (03/10/17 20:00) Diet Regular Basic (03/11/17 Breakfast) Results Vital Signs Date Time Temp Pulse Resp B/P Pulse Ox O2 Delivery O2 Flow Rate FiO2 03/11/17 06:33 97.8 70 17 99/57 98 03/11/17 02:27 97.6 68 17 113/57 96 Room Air 03/10/17 22:11 99.0 100 18 124/64 99 Room Air 03/10/17 18:20 94 20 130/74 100 Room Air 03/10/17 16:36 97.8 89 18 104/56 98 Room Air 03/10/17 10:40 98.4 101 16 115/67 97 Laboratory Tests Test 03/10/17 03/10/17 10:45 11:30 White Blood Count 6.9 Red Blood Count 4.21 Hemoglobin 14.0 Hematocrit 41.4 Mean Corpuscular Volume 98.3 Mean Corpuscular Hemoglobin 33.2 Mean Corpuscular Hemoglobin 33.8 Concent Red Cell Distribution Width 13.1 Platelet Count 228 Mean Platelet Volume 8.7 Neutrophils (%) (Auto) 65.4 Lymphocytes (%) (Auto) 26.1 Monocytes (%) (Auto) 7.7 Eosinophils (%) (Auto) 0.4 Basophils (%) (Auto) 0.4 Neutrophils # (Auto) 4.5 Lymphocytes # (Auto) 1.8 Monocytes # (Auto) 0.5 Eosinophils # (Auto) 0.0 Basophils # (Auto) 0.0 CBC Comment DIFF FINAL Differential Comment Sodium Level 141 Potassium Level 3.6 Chloride Level 108 Carbon Dioxide Level 24.6 Anion Gap 8 Blood Urea Nitrogen 9 Creatinine 0.64 Estimat Glomerular Filtration 112 Rate Random Glucose 79 Calcium Level 9.1 Total Bilirubin 1.5 Aspartate Amino Transf 13 (AST/SGOT) Alanine Aminotransferase 21 (ALT/SGPT) Alkaline Phosphatase 44 Total Protein 6.8 Albumin 4.0 Ethyl Alcohol Level LESS THAN 3 Urine Opiates Screen NEG Urine Barbiturates Screen NEG Urine Amphetamines Screen NEG Urine Benzodiazepines Screen POS Urine Cocaine Screen NEG Urine Cannabinoids Screen POS Diagnosis Primary Impression: Mood disorder Additional Impression: Adjustment disorder Psychiatrically Cleared: Yes Med/ Other Pt Specific Info: No Meds Exist/No RX given Disposition: 01 DISCHARGE HOME Condition: Stable Problem Qualifiers Additional Impression: Adjustment disorder Qualified Code: F43.23 - Adjustment disorder with mixed anxiety and depressed mood Margarita Mack [facility] Mar 11, 2017 10:07
[2017-03-11 11:05] VITALS: BP 99/57
== END 2017-03-11 11:48 | disposition home or self-care (01) ==
LOC: NEPC 10:31 → NEPJ 03-11 11:48
DX: F39 Unspecified mood [affective] disorder (principal); F43.20 Adjustment disorder, unspecified; F31.9 Bipolar disorder, unspecified; F41.8 Other specified anxiety disorders; F17.210 Nicotine dependence, cigarettes, uncomplicated; F12.90 Cannabis use, unspecified, uncomplicated
CPT/HCPCS: 80053; 80307; 84703; 85025; 96372; 99284; J2060

== ENCOUNTER 2017-03-13 22:01 | Inpatient (IN) | payer MEDICAID, OTHER ==
[~2017-03-13] VITALS: Ht 157.5 cm; Wt 55.5 kg
[2017-03-13 22:44] VITALS: BP 116/73; PULSE 94; RESP 14; TEMP 98.6
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
[2017-03-13 23:38] LABS: AUTOMATED NEUTROPHIL # 5.2 TH/MM3 (1.8-7.7); BASOPHIL % 0.4 % (0.0-2.0); EOSINOPHIL # 0.1 TH/MM3 (0-0.4); EOSINOPHIL % 1.4 % (0.0-4.0); HEMATOCRIT 42.1 % (35.0-46.0); HEMO FLAGS DIFF FINAL; LYMPH % 34.3 % (9.0-44.0); LYMPHOCYTE # 3.2 TH/MM3 (1.0-4.8); MEAN CELL VOLUME 97.4 FL (80.0-100.0); MEAN CORPUSCULAR HEMOGLOBIN 34.3 PG (27.0-34.0); MEAN CORPUSCULAR HGB CONC 35.2 % (32.0-36.0); MONO % 7.6 % (0.0-8.0); NEUT % 56.3 % (16.0-70.0); PLATELET COUNT 233 TH/MM3 (150-450); RED BLOOD COUNT 4.32 MIL/MM3 (4.00-5.30); RED CELL DISTRIBUTION WIDTH 13.2 % (11.6-17.2); WHITE BLOOD COUNT 9.2 TH/MM3 (4.0-11.0)
[2017-03-13 23:45] LABS: BACTERIA, URINE RARE /hpf; BLOOD, URINE NEG (NEG); COMMENT (UR) CULT NOT INDICATED; CULTURE IF INDICATED CULT NOT INDICATED; GLUCOSE,URINE NEG (NEG); KETONE, URINE 10 mg/dL (NEG); MUCUS URINE FEW /lpf (OCC); NITRITE,URINE NEG (NEG); PH, URINE 5.5 (5.0-8.5); SQUAMOUS EPITHELIAL CELL URINE 1 /hpf (0-5); URINE COLOR YELLOW (YELLW/STRAW)
[2017-03-13 23:51] LABS: AMPHETAMINE, URINE NEG (NEG); BARBITURATES, URINE NEG (NEG); COCAINE, URINE POS (NEG)
[2017-03-14 00:10] LABS: ALT (GPT) 17 U/L (10-53); ANION GAP 10 MEQ/L (5-15); AST (GOT) 9 U/L (15-37); BLOOD UREA NITROGEN 9 MG/DL (7-18); CHLORIDE 105 MEQ/L (98-107); GLOMERULAR FILTRATION RATE 110 ML/MIN (>89); POTASSIUM 3.4 MEQ/L (3.5-5.1); SODIUM (NA) 138 MEQ/L (136-145)
[2017-03-14 00:13] LABS: ALKALINE PHOSPHATASE 45 U/L (45-117); TOTAL BILIRUBIN ADULT 1.7 MG/DL (0.2-1.0)
[2017-03-14] MEDS ORDERED: diphenhydrAMINE HCL 50 MG CAP PO ONE ×2 (00:15→19:30)
[2017-03-14 02:33] VITALS: BP 101/58; PULSE 87; RESP 18; O2SAT 96
[2017-03-14 06:57] VITALS: BP 100/58; PULSE 70; RESP 18; O2SAT 98
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
[2017-03-14] MEDS ORDERED: OLANZapine IM 10 MG VIAL IM ONE ×2 (10:15→22:00)
[2017-03-14 14:43] VITALS: BP 104/63; PULSE 73; RESP 18; TEMP 97.9; O2SAT 98
[2017-03-14 18:00] VITALS: BP 128/64; PULSE 73; RESP 18; TEMP 99.3; O2SAT 99
[2017-03-14 22:00] VITALS: BP 114/76; PULSE 75; RESP 18
[2017-03-15 01:50] VITALS: BP 99/62; PULSE 64; RESP 16
[2017-03-15 06:04] VITALS: BP 122/59; PULSE 68; RESP 18
[2017-03-15] MEDS ORDERED: OLANZapine IM 10 MG VIAL IM ONE (09:30)
[2017-03-15 10:07] VITALS: BP 111/60; PULSE 85; RESP 18; O2SAT 97
[2017-03-15] MEDS ORDERED: LORazepam 0.5 MG TAB PO PRN (12:15)
[2017-03-15] MEDS ORDERED: ACETAMINOPHEN 325 MG TAB PO PRN (12:15)
[2017-03-15] MEDS ORDERED: MAGNESIUM HYDROXIDE SUSP 30 ML CUP PO PRN (12:15)
[2017-03-15] MEDS ORDERED: LORazepam 2 MG/ML VIAL IM PRN ×2 (12:15)
[2017-03-15] MEDS ORDERED: ALUMINUM/MAGNESIUM/SIMETH 30 ML CUP PO PRN (12:15)
[2017-03-15] MEDS: NICOTINE 21 MG/24 HR PATCH T-DERMAL SCH (12:30)
[2017-03-15] MEDS: LORazepam 1 MG TAB PO PRN ×2 (13:07→21:24)
[2017-03-15 13:20] VITALS: BP 109/57; PULSE 75; RESP 18; TEMP 98.3; O2SAT 98
[2017-03-15] MEDS: OLANZapine ODT 5 MG TAB PO SCH ×2 (14:00→21:00)
[2017-03-15] MEDS ORDERED: REMOVE OLD NICODERM (NICOTINE) PATCH T-DERMAL SCH (21:00)
[2017-03-16 05:53] VITALS: BP 102/57; PULSE 73; RESP 18; TEMP 97.6; O2SAT 98
[2017-03-16] MEDS: OLANZapine ODT 5 MG TAB PO SCH (08:23)
[2017-03-16] MEDS: NICOTINE 21 MG/24 HR PATCH T-DERMAL SCH (08:27)
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
[2017-03-16] MEDS ORDERED: ZYPR5TAB PO (09:10)
== END 2017-03-16 10:20 | disposition left against medical advice (07) | DRG 882 ==
LOC: NEPJ 22:01 → H270 03-15 12:12
PROVIDERS: ADMIT Psychiatry & Neurology Psychiatry; ATTEND Psychiatry & Neurology Psychiatry
DX: F43.23 Adjustment disorder with mixed anxiety and depressed mood (principal); R45.850 Homicidal ideations; F14.10 Cocaine abuse, uncomplicated; G47.00 Insomnia, unspecified; F41.9 Anxiety disorder, unspecified; F17.210 Nicotine dependence, cigarettes, uncomplicated; F12.10 Cannabis abuse, uncomplicated
CPT/HCPCS: 80053; 80307; 81001; 84703; 85025; 96372; Q0163

== ENCOUNTER 2017-03-23 17:25 | Emergency (ER) | payer MEDICAID, OTHER ==
[~2017-03-23] VITALS: Ht 154.9 cm; Wt 60.0 kg
[~2017-03-23 17:25] MED LIST changes: -ABIL2TAB2 PO; -AMBI5TAB PO; -FLUO-1 PO; +ZYPR5TAB PO
[2017-03-23 17:26] VITALS: BP 130/67; PULSE 101; RESP 16; TEMP 98.6; O2SAT 98
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
[2017-03-23] MEDS ORDERED: SODIUM CHLOR 0.9% 1000 ML INJ 1,000 ML IV ONE (18:34)
--- NOTE | 2017-03-23 18:42 | PD ---
HPI Chief Complaint: Musculoskeletal Complaint Time Seen by Provider: 18:30 Travel History International Travel<30 days: No Contact w/Intl Traveler<30days: No Traveled to known affect area: No History of Present Illness HPI This is a 26 year old female presents for evaluation of left hip pain. She reports that 2 days ago she was helping her father with yardwork. She reports that after mowing the lawn and she took a shower and she had a syncopal event. She was seen by her mother and there was no seizure activity. She reports that she did not eat or drink prior to doing this yardwork and she feels like she got dehydrated and this is what caused the syncopal event. She has had syncopal events in the past under similar circumstances. She has been having some left hip pain since the fall. The pain is an aching pain which is worse with movement. She has a history of sciatica but this feels different. She reports that she landed on her left side. She denies any acute back pain, bowel or bladder incontinence, saddle anesthesia, abdominal pain, nausea or vomiting, chest pain or shortness of breath, palpitations, headache, neck pain. She reports that she has been hydrating well since this event and she has been feeling better. She has no other complaints. [facility] Past Medical History Bipolar Disorder: Yes Anxiety: Yes Depression: Yes Diminished Hearing: No Psychiatric: Yes Immunizations Current: No : 3 Para: 2 : 1 Social History Alcohol Use: Yes (ONCE IN A WHILE ) Tobacco Use: Yes (1/2 PPD ) Substance Use: Yes (MARIJUANA, +COCAINE IN LAB REVIEW) Allergies-Medications (Allergen,Severity, Reaction): Coded Allergies: No Known Allergies (Verified , 03/23/17) Reported Meds & Prescriptions Reported Meds & Active Scripts Active Zyprexa (Olanzapine) 5 Mg Tab 5 Mg PO BID 10 Days Review of Systems Except as stated in HPI: all other systems reviewed are Neg Physical Exam Narrative GENERAL: Well-developed well-nourished female in no acute distress SKIN: Warm and dry. No obvious abrasions, bruising or soft tissue swelling HEAD: Atraumatic. Normocephalic. EYES: Pupils equal and round. No scleral icterus. No injection or drainage. ENT: No nasal bleeding or discharge. Mucous membranes pink and moist. NECK: Trachea midline. No JVD. CARDIOVASCULAR: Regular rate and rhythm. No murmur appreciated. RESPIRATORY: No accessory muscle use. Clear to auscultation. Breath sounds equal bilaterally. GASTROINTESTINAL: Abdomen soft, non-tender, nondistended. Hepatic and splenic margins not palpable. MUSCULOSKELETAL: No obvious deformities. Some tenderness to palpation to the lateral left hip. Full range of motion of the lower extremities. There is no tenderness to palpation along the neck or back. NEUROLOGICAL: Awake and alert. No obvious cranial nerve deficits. Motor grossly within normal limits. Normal speech. PSYCHIATRIC: Appropriate mood and affect; insight and judgment normal. Data Data Last Documented VS Vital Signs Date Time Temp Pulse Resp B/P Pulse Ox O2 Delivery O2 Flow Rate FiO2 03/23/17 18:40 20 03/23/17 17:26 98.6 101 130/67 98 Orders Electrocardiogram (03/23/17 18:34) Basic Metabolic Panel (Bmp) (03/23/17 18:34) Ed Urine Pregnancytest Poc (03/23/17 18:34) Complete Blood Count With Diff (03/23/17 18:34) Magnesium (Mg) (03/23/17 18:34) Ckmb (Isoenzyme) Profile (03/23/17 18:34) Ecg Monitoring (03/23/17 18:34) Iv Access Insert/Monitor (03/23/17 18:34) Sodium Chlor 0.9% 1000 Ml Inj (Ns 1000 M (03/23/17 18:34) Hip, Uni(Ap&Lat) W Ap Pelvis (03/23/17 ) Crutches (03/23/17 20:02) Labs Laboratory Tests Test 03/23/17 18:35 White Blood Count 9.4 TH/MM3 Red Blood Count 4.31 MIL/MM3 Hemoglobin 13.2 GM/DL Hematocrit 39.6 % Mean Corpuscular Volume 92.0 FL Mean Corpuscular Hemoglobin 30.6 PG Mean Corpuscular Hemoglobin 33.3 % Concent Red Cell Distribution Width 12.8 % Platelet Count 234 TH/MM3 Mean Platelet Volume 8.4 FL Neutrophils (%) (Auto) 65.4 % Lymphocytes (%) (Auto) 26.6 % Monocytes (%) (Auto) 7.3 % Eosinophils (%) (Auto) 0.6 % Basophils (%) (Auto) 0.1 % Neutrophils # (Auto) 6.1 TH/MM3 Lymphocytes # (Auto) 2.5 TH/MM3 Monocytes # (Auto) 0.7 TH/MM3 Eosinophils # (Auto) 0.1 TH/MM3 Basophils # (Auto) 0.0 TH/MM3 CBC Comment DIFF FINAL Differential Comment Sodium Level 137 MEQ/L Potassium Level 3.5 MEQ/L Chloride Level 105 MEQ/L Carbon Dioxide Level 25.5 MEQ/L Anion Gap 7 MEQ/L Blood Urea Nitrogen 8 MG/DL Creatinine 0.79 MG/DL Estimat Glomerular Filtration 88 ML/MIN Rate Random Glucose 107 MG/DL Calcium Level 8.6 MG/DL Magnesium Level 2.1 MG/DL Total Creatine Kinase 84 U/L [facility] Medical Decision Making Medical Screen Exam Complete: Yes Emergency Medical Condition: Yes Medical Record Reviewed: Yes Interpretation(s) EKG reveals sinus rhythm, rate 93 CONCLUSION: Acute abnormality is not clearly seen. There is a small 2 mm faint density seen superior to the left femoral head and lateral to the superior left acetabular region. A donor site to suggest a small fracture is not clearly seen. However, a tiny fracture fragment off the acetabulum cannot be excluded. This could be an incidental finding or be related to prior injury and hypertrophic change. If the patient's symptoms persist, it could be further evaluated with MRI examination. Differential Diagnosis Contusion, spasm, bursitis, fracture, hematoma, radiculopathy Hypoglycemia, dehydration, electrolyte abnormality, rhabdomyolysis, arrhythmia Narrative Course This is a 26 her old female who had a syncopal event 2 days ago after doing yard work in the heat. She reports that she was dehydrated and didn't eat or drink much prior to doing this. She landed on her left side and she has been having some left hip pain since then. Reveals full range of motion of the lower extremities. She has mild pain on palpation of the lateral left hip. Plan is for x-ray of the pelvis/hip. She'll be given IV fluids. Basic lab work , EKG has been ordered. Lab work is unremarkable. X-ray imaging reveals no obvious acute abnormality but there is a small 2 mm faint density in the radiologist recommends an MRI of the hip if symptoms persist. She was given a copy of her x-ray report. She actually has an appointment with a primary care physician in 2 days for follow-up purposes and if symptoms persist and outpatient MRI imaging would be warranted. She will be discharged with crutches, diclofenac prescription. Diagnosis Primary Impression: Contusion of left hip Qualified Code: S70.02XA - Contusion of left hip, initial encounter Additional Instructions: Crutches as needed. Rest. Diclofenac. As discussed, follow-up with primary care physician. If symptoms persist outpatient MRI imaging of the left hip would be reasonable. Med/Other Pt SpecificInfo: Prescription(s) given, Orthopedic Instructions Scripts Diclofenac Sodium DR 75 Mg Tabdr75 Mg PO BID 7 Days Ref 0 Prov:Sanjay Treviño MD 03/23/17 Disposition: 01 DISCHARGE HOME Condition: Stable Parish Mckeon Mar 23, 2017 18:42
[2017-03-23 19:07] LABS: AUTOMATED NEUTROPHIL # 6.1 TH/MM3 (1.8-7.7); BASOPHIL % 0.1 % (0.0-2.0); EOSINOPHIL # 0.1 TH/MM3 (0-0.4); EOSINOPHIL % 0.6 % (0.0-4.0); HEMATOCRIT 39.6 % (35.0-46.0); HEMO FLAGS DIFF FINAL; LYMPH % 26.6 % (9.0-44.0); LYMPHOCYTE # 2.5 TH/MM3 (1.0-4.8); MEAN CORPUSCULAR HEMOGLOBIN 30.6 PG (27.0-34.0); MEAN CORPUSCULAR HGB CONC 33.3 % (32.0-36.0); MONO % 7.3 % (0.0-8.0); NEUT % 65.4 % (16.0-70.0); PLATELET COUNT 234 TH/MM3 (150-450); RED BLOOD COUNT 4.31 MIL/MM3 (4.00-5.30); RED CELL DISTRIBUTION WIDTH 12.8 % (11.6-17.2); WHITE BLOOD COUNT 9.4 TH/MM3 (4.0-11.0)
[2017-03-23 19:22] LABS: BICARBONATE 25.5 MEQ/L (21.0-32.0); MAGNESIUM 2.1 MG/DL (1.5-2.5); POTASSIUM 3.5 MEQ/L (3.5-5.1)
--- NOTE | 2017-03-23 19:39 | RADRPT ---
EXAM DATE/TIME: 03/23/2017 19:11 [place] COMPARISON: No previous studies available for comparison. INDICATIONS : Left hip pain after falling 2 days ago. MEDICAL HISTORY : None. SURGICAL HISTORY : None. ENCOUNTER: Initial ACUITY: 2 days PAIN SCORE: 6/10 LOCATION: Left hip. FINDINGS: Examination of the left hip was performed with AP Pelvis. The primary and secondary trabecular patte rn of the femoral neck is intact. The hip joint is of normal width without significant sclerosis or bony hypertrophy. The acetabulum is grossly intact. There is a faint 2 mm calcification projecting l ateral to the left superior acetabular region and superior to the left femoral head. CONCLUSION: Acute abnormality is not clearly seen. There is a small 2 mm faint density seen superior to the left femoral head and lateral to the superior left acetabular region. A donor site to suggest a small frac ture is not clearly seen. However, a tiny fracture fragment off the acetabulum cannot be excluded. Th is could be an incidental finding or be related to prior injury and hypertrophic change. If the patie nt's symptoms persist, it could be further evaluated with MRI examination. Mac Jauregui MD on March 23, 2017 at 19:33 Board Certified Radiologist. This report was verified electronically.
[2017-03-23] MEDS ORDERED: DICL75TA PO (20:05)
--- NOTE | 2017-03-24 23:27 | EKG ---
Date Performed: 03/23/2017 Time Performed: 18:43:12 PTAGE: 26 years EKG: Sinus rhythm NORMAL ECG NO PREVIOUS TRACING DOCTOR: Bebo Aleman Interpretating Date/Time 03/24/2017 23:26:13
== END 2017-03-23 20:56 | disposition home or self-care (01) ==
LOC: NEPD 17:25
DX: S70.02XA Contusion of left hip, initial encounter (principal); F17.210 Nicotine dependence, cigarettes, uncomplicated; F14.10 Cocaine abuse, uncomplicated; F12.10 Cannabis abuse, uncomplicated; W18.30XA Fall on same level, unspecified, initial encounter; Y93.89 Activity, other specified; Y92.89 Other specified places as the place of occurrence of the external cause; Y99.8 Other external cause status
CPT/HCPCS: 73502; 80048; 82550; 83735; 84703; 85025; 93005; 99285; E0113; J7030

== ENCOUNTER 2017-04-02 17:48 | Emergency (ER) | payer MEDICAID, OTHER ==
[~2017-04-02] VITALS: Ht 154.9 cm; Wt 58.0 kg
[~2017-04-02 17:48] MED LIST changes: +DICL75TA PO
[2017-04-02 18:10] VITALS: BP 116/69; PULSE 83; RESP 16; TEMP 98.3; O2SAT 96
[2017-04-02 19:18] LABS: AUTOMATED NEUTROPHIL # 4.5 TH/MM3 (1.8-7.7); BASOPHIL % 0.5 % (0.0-2.0); EOSINOPHIL # 0.1 TH/MM3 (0-0.4); EOSINOPHIL % 1.2 % (0.0-4.0); HEMATOCRIT 40.9 % (35.0-46.0); HEMO FLAGS DIFF FINAL; LYMPH % 33.2 % (9.0-44.0); LYMPHOCYTE # 2.6 TH/MM3 (1.0-4.8); MEAN CELL VOLUME 97.4 FL (80.0-100.0); MEAN CORPUSCULAR HEMOGLOBIN 33.8 PG (27.0-34.0); MEAN CORPUSCULAR HGB CONC 34.7 % (32.0-36.0); MONO % 6.6 % (0.0-8.0); NEUT % 58.5 % (16.0-70.0); PLATELET COUNT 294 TH/MM3 (150-450); RED BLOOD COUNT 4.19 MIL/MM3 (4.00-5.30); RED CELL DISTRIBUTION WIDTH 13.2 % (11.6-17.2); WHITE BLOOD COUNT 7.7 TH/MM3 (4.0-11.0)
[2017-04-02 19:41] LABS: ANION GAP 7 MEQ/L (5-15); AST (GOT) 11 U/L (15-37); BICARBONATE 27.8 MEQ/L (21.0-32.0); BLOOD UREA NITROGEN 10 MG/DL (7-18); CHLORIDE 104 MEQ/L (98-107); GLOMERULAR FILTRATION RATE 105 ML/MIN (>89); POTASSIUM 3.7 MEQ/L (3.5-5.1); SODIUM (NA) 139 MEQ/L (136-145)
[2017-04-02 19:42] LABS: ALT (GPT) 20 U/L (10-53)
[2017-04-02 19:44] LABS: ALKALINE PHOSPHATASE 60 U/L (45-117); TOTAL BILIRUBIN ADULT 1.1 MG/DL (0.2-1.0)
[2017-04-02 20:04] LABS: AMPHETAMINE, URINE NEG (NEG); BARBITURATES, URINE NEG (NEG); COCAINE, URINE NEG (NEG)
[2017-04-02] MEDS ORDERED: diphenhydrAMINE HCL 50 MG CAP PO ONE (20:30)
[2017-04-02] MEDS ORDERED: OLANZapine ODT 5 MG TAB PO ONE (20:30)
[2017-04-02 20:35] VITALS: BP 116/70; PULSE 86; RESP 18; TEMP 97.9; O2SAT 97
--- NOTE | 2017-04-02 20:52 | PD ---
HPI Chief Complaint: Psychiatric Symptoms Time Seen by Provider: 20:30 Travel History International Travel<30 days: No Contact w/Intl Traveler<30days: No Traveled to known affect area: No History of Present Illness HPI Patient comes and under ex parte for psychiatric evaluation. Patient denies any suicidal or homicidal ideations. Denies any chest pain, shortness breath, fever, nausea, vomiting, abdominal pain, or . Patient states that she just needs to talk with a therapist and she has numbers of different therapist to contact. PFSH Past Medical History Bipolar Disorder: Yes Anxiety: Yes Depression: Yes Diminished Hearing: No Psychiatric: Yes Immunizations Current: No ?: Not LMP: 03/21/17 : 3 Para: 2 : 1 Social History Alcohol Use: Yes (ONCE IN A WHILE ) Tobacco Use: Yes (1-/2 PPD ) Substance Use: Yes (MARIJUANA) Allergies-Medications (Allergen,Severity, Reaction): Coded Allergies: No Known Allergies (Verified , 04/02/17) Reported Meds & Prescriptions Reported Meds & Active Scripts Active Review of Systems Except as stated in HPI: all other systems reviewed are Neg Physical Exam Narrative GENERAL: Well-developed, well nourished, in no acute distress, and non-ill appearing. SKIN: Focused skin assessment warm and dry. HEAD: Atraumatic. Normocephalic. EYES: Pupils equal and round. EOMI. No scleral icterus. No injection or drainage. ENT: No nasal bleeding or discharge. Mucous membranes pink and moist. NECK: Trachea midline. Supple. No nuclear rigidity. CARDIOVASCULAR: Regular rate and rhythm. No murmur appreciated. RESPIRATORY: No accessory muscle use. No respiratory distress. Clear to auscultation. Breath sounds equal bilaterally. MUSCULOSKELETAL: No obvious deformities. No clubbing. No cyanosis. No edema. Full range of motion. NEUROLOGICAL: Awake and alert. No obvious cranial nerve deficits. Motor grossly within normal limits. Normal speech. PSYCHIATRIC: Appropriate mood and affect; insight and judgment normal. Data Data Last Documented VS Vital Signs Date Time Temp Pulse Resp B/P Pulse Ox O2 Delivery O2 Flow Rate FiO2 04/02/17 20:35 97.9 86 18 116/70 97 Room Air Orders Complete Blood Count With Diff (04/02/17 18:30) Comprehensive Metabolic Panel (04/02/17 18:30) Psych Screen (04/02/17 18:30) Drug Screen, Random Urine (04/02/17 18:30) Olanzapine Odt (Zyprexa Zydis Odt) (04/02/17 20:30) Diphenhydramine (Benadryl) (04/02/17 20:30) Labs Laboratory Tests Test 04/02/17 04/02/17 18:30 18:38 Urine Opiates Screen NEG Urine Barbiturates Screen NEG Urine Amphetamines Screen NEG Urine Benzodiazepines Screen NEG Urine Cocaine Screen NEG Urine Cannabinoids Screen POS White Blood Count 7.7 TH/MM3 Red Blood Count 4.19 MIL/MM3 Hemoglobin 14.2 GM/DL Hematocrit 40.9 % Mean Corpuscular Volume 97.4 FL Mean Corpuscular Hemoglobin 33.8 PG Mean Corpuscular Hemoglobin 34.7 % Concent Red Cell Distribution Width 13.2 % Platelet Count 294 TH/MM3 Mean Platelet Volume 8.5 FL Neutrophils (%) (Auto) 58.5 % Lymphocytes (%) (Auto) 33.2 % Monocytes (%) (Auto) 6.6 % Eosinophils (%) (Auto) 1.2 % Basophils (%) (Auto) 0.5 % Neutrophils # (Auto) 4.5 TH/MM3 Lymphocytes # (Auto) 2.6 TH/MM3 Monocytes # (Auto) 0.5 TH/MM3 Eosinophils # (Auto) 0.1 TH/MM3 Basophils # (Auto) 0.0 TH/MM3 CBC Comment DIFF FINAL Differential Comment Sodium Level 139 MEQ/L Potassium Level 3.7 MEQ/L Chloride Level 104 MEQ/L Carbon Dioxide Level 27.8 MEQ/L Anion Gap 7 MEQ/L Blood Urea Nitrogen 10 MG/DL Creatinine 0.68 MG/DL Estimat Glomerular Filtration 105 ML/MIN Rate Random Glucose 93 MG/DL Calcium Level 9.2 MG/DL Total Bilirubin 1.1 MG/DL Aspartate Amino Transf 11 U/L (AST/SGOT) Alanine Aminotransferase 20 U/L (ALT/SGPT) Alkaline Phosphatase 60 U/L Total Protein 6.9 GM/DL Albumin 3.8 GM/DL [facility] Medical Decision Making Medical Screen Exam Complete: Yes Emergency Medical Condition: Yes Differential Diagnosis Homicidal, suicidal, substance abuse, other Narrative Course Patient was seen and examined. Labs were obtained and reviewed. Patient medically cleared for further treatment and evaluation by psych. Final disposition per psych. Diagnosis Primary Impression: Medical clearance for psychiatric admission Condition: Stable Uriel Neville Apr 02, 2017 20:52
[2017-04-02] MEDS ORDERED: NICOTINE 21 MG/24 HR PATCH T-DERMAL ONE (21:15)
[2017-04-02] MEDS ORDERED: ACETAMINOPHEN 500 MG CPLT PO PRN (21:15)
[2017-04-02 22:00] VITALS: BP 101/60; PULSE 76; RESP 18
[2017-04-03 02:16] VITALS: BP 93/54; PULSE 75; RESP 18; O2SAT 96
[2017-04-03 05:54] VITALS: BP 101/58; PULSE 16; PULSE 76; RESP 16
--- NOTE | 2017-04-03 11:14 | PD ---
History of Present Illness Chief Complaint: Psychiatric Symptoms Time Seen by Provider: 10:45 Travel History International Travel<30 Days: No Contact w/Intl Traveler<30days: No Known affected area: No Legal Status Legal Status: Ex Parte History of Present Illness: History of Present Illness HPI Patient is a 26 year old female with history of adjustment disorder and substance use disorder known to [facility] psychiatry under an EX- Parte initiated by her mother. The order alleges that the patient has mental illness with mood changes, has made suicidal threats at different times, that she put a woman on her bank account, is out of control. The patient has not made any attempts at harming herself or anyone else. She was monitored in J pod and slept well. Her last admission was to [facility] on March 15, 2017 under the care of Dr. Arana. Current toxicology is positive for cannabinoids. Patient is alert and oriented. her speech is clear and logical. There is no terese or hypomania. There is no hallucinations and no delusions, no paranoia. No suicidal or homicidal ideation, intent or plan. Patient at this time does not demonstrate any behaviors which will justify keeping her under an involuntary status. She tells me she is living with a friend and has a job interview for [employer]. She also tells me she plans on going to [facility] on Wednesday for follow up. PFSH Past Medical History Bipolar Disorder: Yes Anxiety: Yes Depression: Yes Diminished Hearing: No Psychiatric: Yes Immunizations Current: No ?: Not LMP: 03/21/17 : 3 Para: 2 : 1 Psychiatric History Psychiatric History Hx Psychiatric Treatment: Last admission in February 2017. Has follow up at [facility] History of Inpatient Treatment: Yes ([facility] February 2017) Social History . Mother of 2 children. Currently living with a friend. Unemployed. Hx Alcohol Use: Yes (ONCE IN A WHILE ) Hx Tobacco Use: Yes (1-1/2 PPD ) Hx Substance Use: Yes (MARIJUANA) Substance Use Type: Alcohol, Marijuana, Cocaine Hx of Substance Use Treatment: No Family Psychiatric History Negative Allergies-Medications (Allergen,Severity, Reaction): Coded Allergies: No Known Allergies (Verified , 04/02/17) Reported Meds & Prescriptions Reported Meds & Active Scripts Active Review of Systems Except as stated in HPI: all other systems reviewed are Neg Exam Alert: Yes [place]: Person (ox4) Mood: Anxious (about current situation), Calm Affect: Appropriate Speech: Clear, Logical Eye Contact: Normal Memory Intact: Immediate (No impairment) Hallucinations: Other (Negative) Delusions: No Suicidal: Ideation (Negative) Homicidal: Ideation (negative) Insight/Judgement Fair. Not impaired. [facility] Medical Decision Making Medical Record Reviewed: Yes Assessment/Plan 26 year old female with history of adjustment disorder who is under an EX PARTE. After being monitored in J pod the patient does not meet criteria to remain under EX PARTE. She is not psychotic, not manic and has no suicidal or homicidal ideation. Future oriented and plans on following up with [facility] on Wednesday. She also has decided to keep away from her mother until she is involved in counseling and can develop skills to mange their tumultuous relationship. At this time she is requesting discharge and there is no criteria to keep her against her will. Extensive psychoeducation is provided. Discharge Orders Complete Blood Count With Diff (04/02/17 18:30) Comprehensive Metabolic Panel (04/02/17 18:30) Psych Screen (04/02/17 18:30) Drug Screen, Random Urine (04/02/17 18:30) Olanzapine Odt (Zyprexa Zydis Odt) (04/02/17 20:30) Diphenhydramine (Benadryl) (04/02/17 20:30) Acetaminophen (Tylenol) (04/02/17 21:15) Nicotine 21 Mg Patch.24 Hr (Habitrol 21 (04/02/17 21:15) Remove Old Patch (04/03/17 21:00) Diet Regular Basic (04/03/17 Breakfast) Results Vital Signs Date Time Temp Pulse Resp B/P Pulse Ox O2 Delivery O2 Flow Rate FiO2 04/03/17 05:54 76 16 101/58 04/03/17 02:16 75 18 93/54 96 04/02/17 22:00 76 18 101/60 Room Air 04/02/17 20:35 97.9 86 18 116/70 97 Room Air 04/02/17 18:10 98.3 83 16 116/69 96 Laboratory Tests Test 04/02/17 04/02/17 18:30 18:38 Urine Opiates Screen NEG Urine Barbiturates Screen NEG Urine Amphetamines Screen NEG Urine Benzodiazepines Screen NEG Urine Cocaine Screen NEG Urine Cannabinoids Screen POS White Blood Count 7.7 Red Blood Count 4.19 Hemoglobin 14.2 Hematocrit 40.9 Mean Corpuscular Volume 97.4 Mean Corpuscular Hemoglobin 33.8 Mean Corpuscular Hemoglobin 34.7 Concent Red Cell Distribution Width 13.2 Platelet Count 294 Mean Platelet Volume 8.5 Neutrophils (%) (Auto) 58.5 Lymphocytes (%) (Auto) 33.2 Monocytes (%) (Auto) 6.6 Eosinophils (%) (Auto) 1.2 Basophils (%) (Auto) 0.5 Neutrophils # (Auto) 4.5 Lymphocytes # (Auto) 2.6 Monocytes # (Auto) 0.5 Eosinophils # (Auto) 0.1 Basophils # (Auto) 0.0 CBC Comment DIFF FINAL Differential Comment Sodium Level 139 Potassium Level 3.7 Chloride Level 104 Carbon Dioxide Level 27.8 Anion Gap 7 Blood Urea Nitrogen 10 Creatinine 0.68 Estimat Glomerular Filtration 105 Rate Random Glucose 93 Calcium Level 9.2 Total Bilirubin 1.1 Aspartate Amino Transf 11 (AST/SGOT) Alanine Aminotransferase 20 (ALT/SGPT) Alkaline Phosphatase 60 Total Protein 6.9 Albumin 3.8 Diagnosis Primary Impression: Adjustment disorder with mixed disturbance of emotions and conduct Psychiatrically Cleared: Yes Med/ Other Pt Specific Info: No Change to Meds Disposition: 01 DISCHARGE HOME Condition: Stable Margarita Mack Apr 03, 2017 11:14
[2017-04-03] MEDS ORDERED: REMOVE OLD NICODERM (NICOTINE) PATCH T-DERMAL ONE (21:00)
== END 2017-04-03 11:45 | disposition home or self-care (01) ==
LOC: NEDAMB 17:48 → NEPJ 04-03 11:45
DX: F43.25 Adjustment disorder with mixed disturbance of emotions and conduct (principal); F31.9 Bipolar disorder, unspecified; F41.9 Anxiety disorder, unspecified; F17.200 Nicotine dependence, unspecified, uncomplicated
CPT/HCPCS: 80053; 80307; 85025; 99283; Q0163

== ENCOUNTER 2017-09-21 15:20 | Emergency (ER) | payer SELFPAY ==
[~2017-09-21] VITALS: Ht 157.5 cm; Wt 54.5 kg
[2017-09-21 15:21] VITALS: BP 121/67; PULSE 88; RESP 14; TEMP 98.4; O2SAT 99
--- NOTE | 2017-09-21 16:21 | PD ---
HPI Chief Complaint: Psychiatric Symptoms Time Seen by Provider: 16:00 Travel History International Travel<30 days: No Contact w/Intl Traveler<30days: No Traveled to known affect area: No History of Present Illness HPI 27-year-old female presents to the emergency department with her boyfriend for psychiatric evaluation. The patient appears paranoid on my exam. She states that she is hearing voices and having hallucinations that are telling her to hurt herself and others. The patient is alert and oriented to person, place, and time, but acts bizarre otherwise. She states she does not know she has done any illicit drugs. She states that she is not currently on any psychiatric medications. Her boyfriend states he has known her for 5 months and she has been fine until Wednesday when the symptoms started. According to our records, she has been seen here for psychiatric issues and psychosis in the past. The patient denies . She is holding her hands with her palms in the air and saying "they are playing games". She states that she is having hallucinations of words and people. No exacerbating or alleviating factors. Moderate severity. PFSH Past Medical History Bipolar Disorder: Yes Anxiety: Yes Depression: Yes Diabetes: No (PT STATES "PRE DIABETIC") Diminished Hearing: No Psychiatric: Yes Immunizations Current: No Schizophrenia: Yes Tetanus Vaccination: > 5 Years Influenza Vaccination: No ?: Not LMP: 09/16/17 : 3 Para: 2 : 1 Social History Alcohol Use: Yes Tobacco Use: Yes (1-1/2 PPD ) Substance Use: Yes (MARIJUANA) Allergies-Medications (Allergen,Severity, Reaction): Coded Allergies: No Known Allergies (Verified Adverse Reaction, Unknown, 09/21/17) Reported Meds & Prescriptions Reported Meds & Active Scripts Active Review of Systems Except as stated in HPI: all other systems reviewed are Neg Physical Exam Exam Limitations: Psychotic Narrative GENERAL: Well-nourished, well-developed female patient, ambulatory. Afebrile. Patient alert and oriented to person, place, time. SKIN: Focused skin assessment warm/dry. HEAD: Normocephalic. Atraumatic. EYES: No scleral icterus. No injection or drainage. NECK: Supple, trachea midline. No JVD or lymphadenopathy. CARDIOVASCULAR: Regular rate and rhythm without murmurs, gallops, or rubs. RESPIRATORY: Breath sounds equal bilaterally. No accessory muscle use. Lungs sounds are clear to auscultation. GASTROINTESTINAL: Abdomen soft, non-tender, nondistended. MUSCULOSKELETAL: No cyanosis, or edema. BACK: Nontender without obvious deformity. No CVA tenderness. PSYCHIATRIC: Patient appears paranoid. She is having hallucinations of people playing games. Data Data Last Documented VS Vital Signs Date Time Temp Pulse Resp B/P (MAP) Pulse Ox O2 Delivery O2 Flow Rate FiO2 09/21/17 15:51 80 18 09/21/17 15:21 98.4 121/67 (85) 99 Orders Orders Complete Blood Count With Diff (09/21/17 16:16) Comprehensive Metabolic Panel (09/21/17 16:16) Ed Urine Pregnancytest Poc (09/21/17 16:16) Psych Screen (09/21/17 16:16) Drug Screen, Random Urine (09/21/17 16:16) Alcohol (Ethanol) (09/21/17 16:16) Salicylates (Aspirin) (09/21/17 16:16) Tylenol (Acetaminophen) (09/21/17 16:16) Labs Laboratory Tests Test 09/21/17 16:05 White Blood Count 6.9 TH/MM3 Red Blood Count 4.27 MIL/MM3 Hemoglobin 14.4 GM/DL Hematocrit 41.0 % Mean Corpuscular Volume 95.9 FL Mean Corpuscular Hemoglobin 33.7 PG Mean Corpuscular Hemoglobin Concent 35.1 % Red Cell Distribution Width 12.2 % Platelet Count 233 TH/MM3 Mean Platelet Volume 8.0 FL Neutrophils (%) (Auto) 60.6 % Lymphocytes (%) (Auto) 31.7 % Monocytes (%) (Auto) 6.4 % Eosinophils (%) (Auto) 1.0 % Basophils (%) (Auto) 0.3 % Neutrophils # (Auto) 4.2 TH/MM3 Lymphocytes # (Auto) 2.2 TH/MM3 Monocytes # (Auto) 0.4 TH/MM3 Eosinophils # (Auto) 0.1 TH/MM3 Basophils # (Auto) 0.0 TH/MM3 CBC Comment DIFF FINAL Differential Comment Blood Urea Nitrogen 16 MG/DL Creatinine 0.88 MG/DL Random Glucose 88 MG/DL Total Protein 6.9 GM/DL Albumin 4.0 GM/DL Calcium Level 8.8 MG/DL Alkaline Phosphatase 51 U/L Aspartate Amino Transf (AST/SGOT) 9 U/L Alanine Aminotransferase (ALT/SGPT) 15 U/L Total Bilirubin 1.6 MG/DL Sodium Level 141 MEQ/L Potassium Level 3.6 MEQ/L Chloride Level 109 MEQ/L Carbon Dioxide Level 27.5 MEQ/L Anion Gap 5 MEQ/L Estimat Glomerular Filtration Rate 77 ML/MIN Salicylates Level LESS THAN 1.7 MG/DL Acetaminophen Level LESS THAN 2.0 MCG/ML Ethyl Alcohol Level LESS THAN 3 MG/DL MDM Medical Decision Making Medical Screen Exam Complete: Yes Emergency Medical Condition: Yes Medical Record Reviewed: Yes Differential Diagnosis Psychosis versus substance abuse versus schizophrenia versus anxiety versus depression versus bipolar disorder Narrative Course 27-year-old female presents to the emergency Department voluntarily with her boyfriend for psychiatric evaluation. She appears paranoid on my exam and is having hallucinations while I examine her. CBC, CMP, alcohol level, urine drug screen, salicylate level, Tylenol level are ordered and pending. Urine test is ordered and pending. CBC is unremarkable. CMP shows no acute abnormality. Alcohol level is less than 3. UDS is pending. Salicylate level is less than 1.7. Tylenol level is less than 2.0. Urine test is negative. Patient is medically cleared for psychiatric screening and disposition. Diagnosis Primary Impression: Medical clearance for psychiatric admission Condition: Stable Regla Templeton Sep 21, 2017 16:21
[2017-09-21 16:45] LABS: AUTOMATED NEUTROPHIL # 4.2 TH/MM3 (1.8-7.7); BASOPHIL % 0.3 % (0.0-2.0); EOSINOPHIL # 0.1 TH/MM3 (0-0.4); HEMOGLOBIN 14.4 GM/DL (11.6-15.3); LYMPH % 31.7 % (9.0-44.0); LYMPHOCYTE # 2.2 TH/MM3 (1.0-4.8); MEAN CELL VOLUME 95.9 FL (80.0-100.0); MEAN CORPUSCULAR HEMOGLOBIN 33.7 PG (27.0-34.0); MEAN CORPUSCULAR HGB CONC 35.1 % (32.0-36.0); MONO % 6.4 % (0.0-8.0); MONOCYTE # 0.4 TH/MM3 (0-0.9); NEUT % 60.6 % (16.0-70.0); PLATELET COUNT 233 TH/MM3 (150-450); RED BLOOD COUNT 4.27 MIL/MM3 (4.00-5.30); RED CELL DISTRIBUTION WIDTH 12.2 % (11.6-17.2); WHITE BLOOD COUNT 6.9 TH/MM3 (4.0-11.0)
[2017-09-21 17:05] LABS: AST (GOT) 9 U/L (15-37); BICARBONATE 27.5 MEQ/L (21.0-32.0); BLOOD UREA NITROGEN 16 MG/DL (7-18); CALCIUM 8.8 MG/DL (8.5-10.1); CHLORIDE 109 MEQ/L (98-107); CREATININE 0.88 MG/DL (0.50-1.00); GLOMERULAR FILTRATION RATE 77 ML/MIN (>89); GLUCOSE,RANDOM 88 MG/DL (74-106); SODIUM (NA) 141 MEQ/L (136-145)
[2017-09-21 17:08] LABS: ACETAMINOPHEN LESS THAN 2.0 MCG/ML (10.0-30.0); ALKALINE PHOSPHATASE 51 U/L (45-117); ALT (GPT) 15 U/L (10-53); TOTAL BILIRUBIN ADULT 1.6 MG/DL (0.2-1.0); TOTAL PROTEIN 6.9 GM/DL (6.4-8.2)
[2017-09-21 17:48] VITALS: BP 106/61; PULSE 79; RESP 18; TEMP 98.4; O2SAT 99
[2017-09-21] MEDS ORDERED: OLANZapine 10 MG TAB PO ONE (20:00)
[2017-09-21] MEDS ORDERED: diphenhydrAMINE HCL 50 MG CAP PO ONE (20:00)
[2017-09-21] MEDS ORDERED: ZYPR5TAB PO (20:07)
--- NOTE | 2017-09-21 20:20 | PD ---
History of Present Illness Chief Complaint: Psychiatric Symptoms Time Seen by Provider: 20:00 Travel History International Travel<30 Days: No Contact w/Intl Traveler<30days: No Known affected area: No Legal Status Legal Status: Josesito Oakley Bellamy Act Signed By: Josesito Oakley Comment: MINOR Arevalo History of Present Illness: History of Present Illness HPI 27-year-old female with history of adjustment disorder, substance use disorder who presents to the emergency department with her boyfriend for psychiatric evaluation. The ED documentation is reviewed and included in this report; " The patient appears paranoid on my exam. She states that she is hearing voices and having hallucinations that are telling her to hurt herself and others. The patient is alert and oriented to person, place, and time, but acts bizarre otherwise. She states she does not know she has done any illicit drugs. She states that she is not currently on any psychiatric medications. Her boyfriend states he has known her for 5 months and she has been fine until Wednesday when the symptoms started. According to our records, she has been seen here for psychiatric issues and psychosis in the past. The patient denies . She is holding her hands with her palms in the air and saying "they are playing games". She states that she is having hallucinations of words and people. " EMR is reviewed. The patient has had several visits to Ed in the past few months as well as having had two psychiatric admissions.Her last admission was in February of 2017 when she was under a BA after threatening to kill her mother. She left A. Current toxicology report is positive for amphetamines as well as cannabinoids. The patient is seen with nurse Starr. She appears suspicious, guarded. Her speech is of very low tone. She appears internally preoccupied and has been heard talking to herself in her room. She has also been observed gesturing with her hands and was observed crawling on the floor. Patient is unable to engage in complete psychiatric exam at this time due to current mental status. She states that she doesn't know why she is here and that we need to" stop playing the games and let her go". PFSH Past Medical History Bipolar Disorder: Yes Anxiety: Yes Depression: Yes Diabetes: No (PT STATES "PRE DIABETIC") Diminished Hearing: No Psychiatric: Yes Immunizations Current: No Schizophrenia: Yes Tetanus Vaccination: > 5 Years Influenza Vaccination: No ?: Not LMP: 09/16/17 : 3 Para: 2 : 1 Psychiatric History Psychiatric History Hx Psychiatric Treatment: Last admission in February 2017. Unable to determine if she has continued outpatient care. History of Inpatient Treatment: Yes (last psychiatric hospitalization March 14, 2017.) Guns or firearms in home: No Social History Single mother of 2 children. Unable to obtain any other information due to current mental status. Hx Alcohol Use: Yes Hx Tobacco Use: Yes (1-2 PPD ) Hx Substance Use: Yes (MARIJUANA) Substance Use Type: Alcohol, Marijuana, Amphetamines-Stimulants, Cocaine Other Substances Used: current toxicology is positive for amphetamines and marijuana Hx of Substance Use Treatment: No Family Psychiatric History Unable to obtain Allergies-Medications (Allergen,Severity, Reaction): Coded Allergies: No Known Allergies (Verified Adverse Reaction, Unknown, 09/21/17) Reported Meds & Prescriptions Reported Meds & Active Scripts Active Reported Zyprexa (Olanzapine) 5 Mg Tab 5 Mg PO DAILY Review of Systems ROS Limitations: Psychotic Mental Status Examination Appearance: Appropriate (dressed in [facility]) Consciousness: Alert Orientation: Person Motor Activity: Normal gait Speech: Hesitant Language: Adequate Fund of Knowledge: Adequate Attention and Concentration: Inadequate Memory: Unremarkable (not tested) Mood: Other (dysphoric) Affect: Blunt Thought Process & Associations: Other (appears internally preoccupied) Thought Content: Hallucinations, Thought blocking Hallucination Type: Auditory Delusion Type: Paranoid Suicidal Ideation: No Suicidal Plan: No Suicidal Intention: No Homicidal Ideation: No Homicidal Plan: No Homicidal Intention: No Insight: Poor Judgment: Poor MDM Medical Decision Making Medical Record Reviewed: Yes Assessment/Plan 27-year-old female with history of adjustment disorder, substance use disorder who presents initially under a voluntary status. Patient is placed under a Bellamy act as she is presently psychotic with significant thought blocking, appears internally preoccupied, observed responding to internal stimuli, gesturing with her hands, unable at this time to determine if she needs an examination and care. Her toxicology is positive for amphetamines as well as cannabinoids. Her current presentation may be related to the use of substances but without further care patient is likely to suffer from harm to herself. The patient is provided and ETO of Zyprexa. She will be placed on a list for further care. Orders Orders Complete Blood Count With Diff (09/21/17 16:16) Comprehensive Metabolic Panel (09/21/17 16:16) Ed Urine Pregnancytest Poc (09/21/17 16:16) Psych Screen (09/21/17 16:16) Drug Screen, Random Urine (09/21/17 16:16) Alcohol (Ethanol) (09/21/17 16:16) Salicylates (Aspirin) (09/21/17 16:16) Tylenol (Acetaminophen) (09/21/17 16:16) Olanzapine (Zyprexa) (09/21/17 20:00) Diphenhydramine (Benadryl) (09/21/17 20:00) Results Vital Signs Date Time Temp Pulse Resp B/P (MAP) Pulse Ox O2 Delivery O2 Flow Rate FiO2 09/21/17 17:48 98.4 79 18 106/61 (76) 99 Room Air 09/21/17 17:41 09/21/17 15:51 80 18 09/21/17 15:21 98.4 88 14 121/67 (85) 99 Laboratory Tests Test 09/21/17 16:05 09/21/17 19:17 White Blood Count 6.9 Red Blood Count 4.27 Hemoglobin 14.4 Hematocrit 41.0 Mean Corpuscular Volume 95.9 Mean Corpuscular Hemoglobin 33.7 Mean Corpuscular Hemoglobin Concent 35.1 Red Cell Distribution Width 12.2 Platelet Count 233 Mean Platelet Volume 8.0 Neutrophils (%) (Auto) 60.6 Lymphocytes (%) (Auto) 31.7 Monocytes (%) (Auto) 6.4 Eosinophils (%) (Auto) 1.0 Basophils (%) (Auto) 0.3 Neutrophils # (Auto) 4.2 Lymphocytes # (Auto) 2.2 Monocytes # (Auto) 0.4 Eosinophils # (Auto) 0.1 Basophils # (Auto) 0.0 CBC Comment DIFF FINAL Differential Comment Blood Urea Nitrogen 16 Creatinine 0.88 Random Glucose 88 Total Protein 6.9 Albumin 4.0 Calcium Level 8.8 Alkaline Phosphatase 51 Aspartate Amino Transf (AST/SGOT) 9 Alanine Aminotransferase (ALT/SGPT) 15 Total Bilirubin 1.6 Sodium Level 141 Potassium Level 3.6 Chloride Level 109 Carbon Dioxide Level 27.5 Anion Gap 5 Estimat Glomerular Filtration Rate 77 Salicylates Level LESS THAN 1.7 Acetaminophen Level LESS THAN 2.0 Ethyl Alcohol Level LESS THAN 3 Urine Opiates Screen NEG Urine Barbiturates Screen NEG Urine Amphetamines Screen POS Urine Benzodiazepines Screen NEG Urine Cocaine Screen NEG Urine Cannabinoids Screen POS Diagnosis Primary Impression: Psychosis Additional Impressions: Polysubstance abuse Amphetamine abuse Condition: Stable Problem Qualifiers Primary Impression: Psychosis Qualified Codes: F29 - Unspecified psychosis not due to a substance or known physiological condition Margarita Mack Sep 21, 2017 20:20
== END 2017-09-22 03:09 ==
LOC: NEPD 15:20 → NEPJ 09-22 03:09
DX: F20.9 Schizophrenia, unspecified (principal); F31.9 Bipolar disorder, unspecified; F19.10 Other psychoactive substance abuse, uncomplicated; F15.10 Other stimulant abuse, uncomplicated; F17.200 Nicotine dependence, unspecified, uncomplicated; Z79.899 Other long term (current) drug therapy
CPT/HCPCS: 80053; 80307; 84703; 85025; 99283; Q0163

== ENCOUNTER 2017-10-25 08:31 | Inpatient (IN) | payer SELFPAY ==
[~2017-10-25] VITALS: Ht 154.9 cm; Wt 54.5 kg
[~2017-10-25 08:31] MED LIST changes: -DICL75TA PO
[2017-10-25 08:34] VITALS: BP 129/84; PULSE 85; RESP 18; TEMP 98.7; O2SAT 99
[2017-10-25] MEDS ORDERED: LORazepam 2 MG/ML VIAL IM ONE (09:15)
[2017-10-25 09:46] LABS: BASOPHIL % 0.6 % (0.0-2.0); EOSINOPHIL % 0.6 % (0.0-4.0); HEMATOCRIT 40.6 % (35.0-46.0); HEMOGLOBIN 14.3 GM/DL (11.6-15.3); LYMPH % 29.5 % (9.0-44.0); MEAN CELL VOLUME 94.1 FL (80.0-100.0); MEAN CORPUSCULAR HEMOGLOBIN 33.3 PG (27.0-34.0); MEAN CORPUSCULAR HGB CONC 35.3 % (32.0-36.0); MEAN PLATELET VOLUME 7.7 FL (7.0-11.0); MONO % 9.9 % (0.0-8.0); MONOCYTE # 0.7 TH/MM3 (0-0.9); NEUT % 59.4 % (16.0-70.0); PLATELET COUNT 303 TH/MM3 (150-450); RED BLOOD COUNT 4.31 MIL/MM3 (4.00-5.30); WHITE BLOOD COUNT 6.7 TH/MM3 (4.0-11.0)
--- NOTE | 2017-10-25 10:08 | PD ---
HPI Chief Complaint: Psychiatric Symptoms Time Seen by Provider: 08:52 Travel History International Travel<30 days: No Contact w/Intl Traveler<30days: No Traveled to known affect area: No History of Present Illness HPI Patient is a 27 year old female who is brought in by mom due to psychosis. Per mom, she was diagnosed Bipolar in December after a series of psychotic events. Mom says she was doing well, but started dating a man and August was dropped off at [facility] after a 3 day meth binge. Mom says she has been living with her for the past 3 weeks and she has had no access to any drugs. Mom says she has not slept in 5 days. Mom has noticed her becoming increasingly psychotic and actively hallucinating. She has not been taking her medications. She is acutely psychotic, she admits to hallucinations, but does not provide any other history. PFSH Past Medical History Bipolar Disorder: Yes Anxiety: Yes Depression: Yes Diabetes: No (PT STATES "PRE DIABETIC") Patient Takes Glucophage: No Diminished Hearing: No Psychiatric: Yes Immunizations Current: No Schizophrenia: Yes Tetanus Vaccination: Unknown ?: Unknown : 3 Para: 2 Miscarriage: 0 : 1 Social History Alcohol Use: Yes Tobacco Use: Yes (1-09/28 PPD ) Substance Use: Yes (MARIJUANA) Allergies-Medications (Allergen,Severity, Reaction): Coded Allergies: No Known Allergies (Verified Allergy, Unknown, 10/25/17) Reported Meds & Prescriptions Reported Meds & Active Scripts Active Reported Zyprexa (Olanzapine) 5 Mg Tab 5 Mg PO DAILY Review of Systems ROS Limitations: Psychotic Physical Exam Narrative GENERAL: Awake and alert, in no acute distress. SKIN: Focused skin assessment warm/dry. No wounds or signs of infection. HEAD: Atraumatic. Normocephalic. EYES: Pupils equal and round. No scleral icterus. ENT: Mucous membranes pink and moist. NECK: Trachea midline. No JVD. CARDIOVASCULAR: Regular rate and rhythm. No murmur appreciated. RESPIRATORY: No accessory muscle use. Clear to auscultation. Breath sounds equal bilaterally. GASTROINTESTINAL: Abdomen soft, non-tender, nondistended. MUSCULOSKELETAL: No obvious deformities. No clubbing. No cyanosis. No edema. NEUROLOGICAL: Awake and alert. No obvious cranial nerve deficits. Motor grossly within normal limits. PSYCHIATRIC: Appears to be hallucinating, making gestures and talking about things that do not exist. Data Data Last Documented VS Vital Signs Date Time Temp Pulse Resp B/P (MAP) Pulse Ox O2 Delivery O2 Flow Rate FiO2 10/26/17 06:19 18 Room Air 10/25/17 22:19 90 100 10/25/17 08:34 98.7 Orders Orders Complete Blood Count With Diff (10/25/17 09:06) Comprehensive Metabolic Panel (10/25/17 09:06) Ed Urine Pregnancytest Poc (10/25/17 09:06) Psych Screen (10/25/17 09:06) Lorazepam Inj (Ativan Inj) (10/25/17 09:15) Drug Screen, Random Urine (10/25/17 09:06) Alcohol (Ethanol) (10/25/17 09:06) Salicylates (Aspirin) (10/25/17 09:06) Tylenol (Acetaminophen) (10/25/17 09:06) Thyroid Stimulating Hormone (10/25/17 10:10) Us Abdomen Gallbladder (10/25/17 ) Midazolam Inj (Versed Inj) (10/25/17 11:20) Olanzapine Odt (Zyprexa Zydis Odt) (10/25/17 21:30) Diet Regular Basic (10/26/17 Breakfast) Ziprasidone Inj (Geodon Inj) (10/26/17 11:00) Diphenhydramine Inj (Benadryl Inj) (10/26/17 10:45) Diet Regular Basic (10/26/17 Lunch) Admit Order (Ed Use Only) (10/26/17 ) Admit To Inpatient Psych (10/26/17 ) Code Status (10/26/17 16:02) Vital Signs (Adult) [id number] (10/26/17 16:02) Activity Oob Ad Joy (10/26/17 16:02) Level Of Observation (Psych) (10/26/17 16:02) Aims-Abnormal Invol Move Scale ONCE (10/26/17 16:02) Acetaminophen (Tylenol) (10/26/17 16:15) Magnesium Hydroxide Liq (Milk Of Magnesi (10/26/17 16:15) Al-Mag Hy-Si 40-40-4 Mg/Ml Liq (Mag-Al P (10/26/17 16:15) Basic Metabolic Panel (Bmp) (10/27/17 06:00) Lipid Profile (10/27/17 06:00) Hemoglobin (Hgb) A1c (10/27/17 06:00) Electrocardiogram (10/27/17 ) Labs Laboratory Tests Test 10/25/17 09:25 10/25/17 11:30 White Blood Count 6.7 TH/MM3 Red Blood Count 4.31 MIL/MM3 Hemoglobin 14.3 GM/DL Hematocrit 40.6 % Mean Corpuscular Volume 94.1 FL Mean Corpuscular Hemoglobin 33.3 PG Mean Corpuscular Hemoglobin Concent 35.3 % Red Cell Distribution Width 13.0 % Platelet Count 303 TH/MM3 Mean Platelet Volume 7.7 FL Neutrophils (%) (Auto) 59.4 % Lymphocytes (%) (Auto) 29.5 % Monocytes (%) (Auto) 9.9 % Eosinophils (%) (Auto) 0.6 % Basophils (%) (Auto) 0.6 % Neutrophils # (Auto) 4.0 TH/MM3 Lymphocytes # (Auto) 2.0 TH/MM3 Monocytes # (Auto) 0.7 TH/MM3 Eosinophils # (Auto) 0.0 TH/MM3 Basophils # (Auto) 0.0 TH/MM3 CBC Comment DIFF FINAL Differential Comment Blood Urea Nitrogen 14 MG/DL Creatinine 0.64 MG/DL Random Glucose 87 MG/DL Total Protein 7.5 GM/DL Albumin 4.3 GM/DL Calcium Level 9.6 MG/DL Alkaline Phosphatase 66 U/L Aspartate Amino Transf (AST/SGOT) 28 U/L Alanine Aminotransferase (ALT/SGPT) 100 U/L Total Bilirubin 3.1 MG/DL Sodium Level 139 MEQ/L Potassium Level 3.7 MEQ/L Chloride Level 105 MEQ/L Carbon Dioxide Level 26.6 MEQ/L Anion Gap 7 MEQ/L Estimat Glomerular Filtration Rate 111 ML/MIN Thyroid Stimulating Hormone 3rd Gen 0.500 uIU/ML Salicylates Level LESS THAN 1.7 MG/DL Acetaminophen Level LESS THAN 2.0 MCG/ML Ethyl Alcohol Level LESS THAN 3 MG/DL Urine Opiates Screen NEG Urine Barbiturates Screen NEG Urine Amphetamines Screen NEG Urine Benzodiazepines Screen NEG Urine Cocaine Screen NEG Urine Cannabinoids Screen POS MDM Medical Decision Making Medical Screen Exam Complete: Yes Emergency Medical Condition: Yes Medical Record Reviewed: Yes Differential Diagnosis Psychosis versus intoxication versus electrolyte abnormality Narrative Course Patient is a 27-year-old female brought in by mom due to psychosis. Patient is actively hallucinating in the room. Labs sent show an elevated bilirubin as well as ALT. Ultrasound of the gallbladder performed shows no acute abnormalities. It is possible, patient has hepatitis. Mom advised to follow- up with a primary care doctor once she is more lucid in her psychosis has been taking care of. She is placed under a Bellamy act. She did receive a dose of Versed to have the ultrasound performed. She will be medically cleared for psychiatric evaluation. Diagnosis Primary Impression: Medical clearance for psychiatric admission Allyn Berg MD Oct 25, 2017 10:08
[2017-10-25 10:18] LABS: ALBUMIN 4.3 GM/DL (3.4-5.0); ALT (GPT) 100 U/L (10-53); AST (GOT) 28 U/L (15-37); BICARBONATE 26.6 MEQ/L (21.0-32.0); BLOOD UREA NITROGEN 14 MG/DL (7-18); CALCIUM 9.6 MG/DL (8.5-10.1); CHLORIDE 105 MEQ/L (98-107); CREATININE 0.64 MG/DL (0.50-1.00); GLOMERULAR FILTRATION RATE 111 ML/MIN (>89); GLUCOSE,RANDOM 87 MG/DL (74-106); SODIUM (NA) 139 MEQ/L (136-145)
[2017-10-25 10:21] LABS: ACETAMINOPHEN LESS THAN 2.0 MCG/ML (10.0-30.0); ALKALINE PHOSPHATASE 66 U/L (45-117); TOTAL BILIRUBIN ADULT 3.1 MG/DL (0.2-1.0); TOTAL PROTEIN 7.5 GM/DL (6.4-8.2)
[2017-10-25] MEDS ORDERED: MIDAZOLAM HCL 5 MG/ML VIAL (1 ML) IV STA (11:20)
--- NOTE | 2017-10-25 11:51 | RADRPT ---
EXAM DATE/TIME: 10/25/2017 11:08 [facility] COMPARISON: No previous studies available for comparison. INDICATIONS : Right upper quadrant pain. MEDICAL HISTORY : . Substance abuse. Bipolar disorder. Schizophrenia. Depression. Anxiety. . SURGICAL HISTORY : Right hand surgery. ENCOUNTER: Initial ACUITY: 1 day PAIN SCORE: 3/10 LOCATION: Right upper quadrant MEASUREMENTS: LIVER: 15.9 cm length COMMON DUCT: 4 mm RIGHT KIDNEY: 10.8 x 5.5 x 3.8 cm FINDINGS: LIVER: Normal echotexture without focal lesion or ductal dilatation. COMMON DUCT: No intraluminal mass or stone visualized. GALLBLADDER: Contains no stones, demonstrates no wall thickening or pericholecystic fluid. PANCREAS: The visualized portions are within normal limits. RIGHT KIDNEY: No evidence of hydronephrosis, stone, or mass. CONCLUSION: Unremarkable exam. The gallbladder is within normal limits. Kwabena Luz MD on October 25, 2017 at 11:48 Board Certified Radiologist. This report was verified electronically.
[2017-10-25 15:26] VITALS: BP 115/69; PULSE 95; RESP 18; O2SAT 100
[2017-10-25 18:46] VITALS: BP 105/60; O2SAT 99
[2017-10-25] MEDS ORDERED: OLANZapine ODT 5 MG TAB PO ONE (21:30)
[2017-10-25 22:19] VITALS: BP 119/73; PULSE 90; RESP 18; O2SAT 100
[2017-10-26 06:19] VITALS: RESP 18
--- NOTE | 2017-10-26 10:26 | PD ---
History of Present Illness Chief Complaint: Psychiatric Symptoms Time Seen by Provider: 10:10 Travel History International Travel<30 Days: No Contact w/Intl Traveler<30days: No Known affected area: No Legal Status Legal Status: Bellamy Act Bellamy Act Signed By: JIGNA CEE DOC History of Present Illness: History of Present Illness HPI Patient is a 27 year old female who is initially brought in by mom with chief complaint of psychosis and requesting a psychiatric evaluation. ED note is reviewed and included in this report: " Per mom, she was diagnosed Bipolar in December after a series of psychotic events. Mom says she was doing well, but started dating a man and in August was dropped off at [facility] after a 3 day meth binge. Mom says she has been living with her for the past 3 weeks and she has had no access to any drugs. Mom says she has not slept in 5 days. Mom has noticed her becoming increasingly psychotic and actively hallucinating. She has not been taking her medications. She is acutely psychotic, she admits to hallucinations, but does not provide any other history." The patient is seen in J pod she is restless, screaming at times in nonsensical manner. She wanders aimlessly her around the unit and requires redirection. She appears internally preoccupied. She required ETO at this time due to attempting to leave the unit and inability to be redirected with verbal interventions. The patient has been placed on [facility] waiting list for further treatment but I have been informed that there are no beds available. EMR is reviewed. Patient has had several visits to the emergency department in 2017. Some of these visits are related to substance use and she has tested positive for amphetamines in the past. She was admitted for a brief hospitalization here at [facility] in February 2017 with diagnosis of unspecified psychosis. Her last contact with [facility] was September [id number] at which time she was experiencing auditory hallucinations in context of amphetamine use. She was sent to [facility]. Current toxicology is positive for cannabinoids only. PFSH Past Medical History Bipolar Disorder: Yes Anxiety: Yes Depression: Yes Diabetes: No (PT STATES "PRE DIABETIC") Patient Takes Glucophage: No Diminished Hearing: No Psychiatric: Yes Immunizations Current: No Schizophrenia: Yes Tetanus Vaccination: Unknown ?: Unknown : 3 Para: 2 Miscarriage: 0 : 1 Psychiatric History Psychiatric History Hx Psychiatric Treatment: WAS DIAGNOSED WITH BIPOLAR IN DECEMBER. RECENTLY AT [facility]. UNKNOWN COMPLIANCE WITH MEDICATION. Has been briefly hospitalized here in [facility] History of Inpatient Treatment: Yes Guns or firearms in home: No Social History , has 2 daughters were in the custody of her mother. High school graduate. Has been living with her mother for the past 3 weeks. Hx Alcohol Use: Yes Hx Tobacco Use: Yes ( PPD ) Hx Substance Use: Yes (MARIJUANA) Substance Use Type: Alcohol, Marijuana, Amphetamines-Stimulants, Cocaine, LSD- [place] Hx of Substance Use Treatment: No Family Psychiatric History Unknown Allergies-Medications (Allergen,Severity, Reaction): Coded Allergies: No Known Allergies (Verified Allergy, Unknown, 10/25/17) Reported Meds & Prescriptions Reported Meds & Active Scripts Active Reported Zyprexa (Olanzapine) 5 Mg Tab 5 Mg PO DAILY Review of Systems ROS Limitations: Psychotic Mental Status Examination Appearance: Dirty Consciousness: Alert Orientation: Person, Place Motor Activity: Normal gait Speech: Hesitant, Slow, Incoherent Language: Adequate Fund of Knowledge: Adequate Attention and Concentration: Inadequate Memory: Unremarkable (not tested) Mood: Angry, Sad Affect: Blunt Thought Process & Associations: Disorganized Thought Content: Thought blocking Hallucination Type: Auditory (family reports she's been responding to internal stimuli) Delusion Type: None Suicidal Ideation: No Suicidal Plan: No Suicidal Intention: No Homicidal Ideation: No Homicidal Plan: No Homicidal Intention: No Insight: Poor Judgment: Poor MDM Medical Decision Making Medical Record Reviewed: Yes Assessment/Plan 27-year-old female with history of bipolar disorder, adjustment disorder, unspecified psychosis, substance use disorder, who is under Bellamy act initiated by ED physician after her mother brought her to the hospital and reported that she had been actively hallucinating both usually and auditory, has not slept in 5 days, and has been unable to care for herself. It is also reported that she has not been taking medications. The patient's toxicology is positive for cannabinoids. She does have a history of past methamphetamine use. At this time the patient has required ETO while in the ED and has remained restless and internally preoccupied. She was placed on [facility] list for possible disposition but I have been informed that there will be no available beds. At this time the patient requires inpatient psychiatric treatment for further evaluation, safety, stabilization. Orders Orders Us Abdomen Gallbladder (10/25/17 ) Midazolam Inj (Versed Inj) (10/25/17 11:20) Olanzapine Odt (Zyprexa Zydis Odt) (10/25/17 21:30) Diet Regular Basic (10/26/17 Breakfast) Ziprasidone Inj (Geodon Inj) (10/26/17 10:30) Diphenhydramine Inj (Benadryl Inj) (10/26/17 10:30) Results Vital Signs Date Time Temp Pulse Resp B/P (MAP) Pulse Ox O2 Delivery O2 Flow Rate FiO2 10/26/17 06:19 18 Room Air 10/25/17 22:19 90 18 119/73 (88) 100 Room Air 10/25/17 18:46 98 18 105/60 (75) 99 Room Air 10/25/17 15:26 95 18 115/69 (84) 100 Room Air Laboratory Tests Test 10/25/17 11:30 Urine Opiates Screen NEG Urine Barbiturates Screen NEG Urine Amphetamines Screen NEG Urine Benzodiazepines Screen NEG Urine Cocaine Screen NEG Urine Cannabinoids Screen POS Diagnosis Primary Impression: Unspecified psychosis Admitting Information Admitting Physician Requests: Admit Margarita Mack Oct 26, 2017 10:26
[2017-10-26] MEDS ORDERED: diphenhydrAMINE HCL 50 MG/ML VIAL IM ONE (10:45)
[2017-10-26] MEDS ORDERED: ZIPRASIDONE MESYLATE 20 MG VIAL IM ONE (11:00)
[2017-10-26] MEDS ORDERED: ALUMINUM/MAGNESIUM/SIMETH 30 ML CUP PO PRN (16:15)
[2017-10-26] MEDS ORDERED: MAGNESIUM HYDROXIDE SUSP 30 ML CUP PO PRN (16:15)
[2017-10-26 17:39] VITALS: BP 113/77; PULSE 86; RESP 17; TEMP 97.9; O2SAT 99
--- NOTE | 2017-10-27 08:50 | HHI.HP ---
Provisional Diagnosis Admission Date Oct 26, 2017 at 16:05 [place] I. 1. Other psychotic disorder Rule out drug-induced mood/psychotic disorder 2. Polysubstance abuse [place] II. Deferred Certification of Person's Competence To Provide Express and Informed Consent I have personally examined Ann Marie Bae , a person being served at [facility] on, Oct 27, 2017 08:49. Express and informed consent means consent voluntarily given in writing, by a competent person, after sufficient explanation and disclosure of the subject matter involved to enable the person to make a knowing and willful decision without any element of force, fraud, deceit, duress, or other form of constraint or coercion. This person is 18 years of age or older, is not now known to be incompetent to consent to treatment with a guardian advocate, and does not have a health care surrogate or proxy currently making medical treatment decisions. I have found this person to be one of the following: [] Competent to provide express and informed consent, as defined above, for voluntary admission to this facility and is competent to provide express and informed consent for treatment. He/she has the consistent capacity to make well reasoned, willful, and knowing decisions concerning his or her medical or mental health treatment. The person fully and consistently understands the purpose of the admission for examination/placement and is fully capable of personally exercising all rights [place] [x] Incompetent to provide express and informed consent to voluntary admission, and this is incompetent to provide express and informed consent to treatment. The person must be transferred to involuntary status and a petition for a guardian advocate filed with the Circuit Court. [] Refusing to provide express and informed consent to voluntary admission but is competent to provide express and informed consent for treatment. The person must be discharged or transferred to involuntary status. Form shall be completed within 24 hours of a person's arrival at the receiving facility and filed in the clinical record of each person: 1. Admitted on a voluntary basis 2. Permitted to provide express and informed consent to his/her own treatment 3. Allowed to transfer from involuntary to voluntary status 4. Prior to permitting a person to consent to his or her own treatment after having been previously found incompetent to consent to treatment. History of Present Illness Capacity: Lacks Capacity Psych Chief Complaint: "I feel fucking horrible." HPI Ms. Bae is a 27-year-old female with a history of substance use issues and adjustment disorder who presented to the emergency department, brought in by family out of concern that she was increasingly psychotic and hallucinating. ED provider initiated [facility]. Patient was evaluated by the psychiatric nurse practitioner who admitted the patient to the inpatient psychiatric unit. Patient was agitated and exit seeking in the emergency department and was medicated with Geodon ETO. Reviewing the electronic medical record, I note the patient has been seen in the ED in the past for substance- related psychiatric symptoms and was admitted briefly under my care in February of last year. Patient seen and examined with nurse. Chart reviewed. Case discussed with nursing staff. On my examination today, the patient is tearful and affect is broadly dysphoric. She is psychomotor slowed and somewhat negativistic. She appears internally stimulated and mutters to herself "Oh my God! Whatever, whatever, whatever." Thought process seems somewhat disorganized. She endorses suicidal ideation but denies homicidal ideation. No cammie delusional material elicited, but it is difficult to ascertain thought content as a consequence of her thought disorder. Psychiatric interview is fairly limited because of patient's current degree of psychiatric decompensation, and I am unable to obtain any meaningful past psychiatric, family, chemical dependency or social history from the patient for the same reason. Given the patient's degree of psychiatric decompensation, I tried first to obtain collateral from the patient's mother at the number listed in the EMR. I left a generic voicemail requesting a call back. I was able to obtain collateral from the patient's sister Kelley at the number listed EMR. She notes that the patient was hospitalized at [facility] at the beginning of the year and has since been prescribed Vraylar with which she is poorly adherent. Sister notes that about a week ago patient began to grow increasingly elevated/ irritable. She wasn't sleeping. She was disrobing. She appeared internally stimulated. Sister does note that there are comorbid substance use issues, and that a boyfriend may have turned her onto methamphetamines. Sister is willing to act as healthcare surrogate and is in agreement with the treatment plan as outlined below. Review of Systems ROS Limitations: Psychotic, Poor Historian Other Limited ROS because of patient's degree of psychiatric impairment Past Psych History Psychological trauma history No reported trauma history to me Violence risk - others (6 mos) Indeterminate. Patient psychotic and unpredictable. Violence risk - self (6 mos) Indeterminate. Patient psychotic and unpredictable. Endorses suicidal ideation. No reported urge to hurt herself on the inpatient unit. Substance Abuse History Drugs/Alcohol past 12 months Basic urine toxicology positive only for cannabinoids. Past Family Social History Coded Allergies: No Known Allergies (Verified Allergy, Unknown, 10/25/17) Past Medical History See electronic medical record Reported Medications Olanzapine (Zyprexa) 5 Mg Tab, 5 MG PO DAILY, #30 TAB 0 Refills 09/21/17 Current Medications Medications (Trade) Dose Ordered Sig/Edmond Route Start Time Stop Time Status Last Admin (Tylenol) 650 mg Q4H PRN PO 10/26/17 16:15 (Milk Of Magnesia Liq) 30 ml DAILY PRN PO 10/26/17 16:15 (Mag-Al Plus Susp Liq) 30 ml Q6H PRN PO 10/26/17 16:15 Family Psych History See above Social History See above Patient's Strengths (min. 2) In a monitored setting. Supportive sister. Physical Exam Physical examination completed by ED provider. On my examination today, the patient appears to be in no acute physical distress. No motor abnormalities noted. No signs of intoxication or withdrawal noted. Labs and vitals reviewed: Vital Signs Vital Signs Date Time Temp Pulse Resp B/P (MAP) Pulse Ox O2 Delivery O2 Flow Rate FiO2 10/26/17 17:39 97.9 86 17 113/77 (89) 99 10/26/17 06:19 Room Air Lab Results Item Value Date Time White Blood Count 6.7 TH/MM3 10/25/17 0925 Hemoglobin 14.3 GM/DL 10/25/17 0925 Platelet Count 303 TH/MM3 10/25/17 0925 Sodium Level 139 MEQ/L 10/25/17 0925 Potassium Level 3.7 MEQ/L 10/25/17 0925 Chloride Level 105 MEQ/L 10/25/17 0925 Carbon Dioxide Level 26.6 MEQ/L 10/25/17 0925 Blood Urea Nitrogen 14 MG/DL 10/25/17 0925 Creatinine 0.64 MG/DL 10/25/17 0925 Estimat Glomerular Filtration Rate 111 ML/MIN 10/25/17 0925 Random Glucose 87 MG/DL 10/25/17 0925 Aspartate Amino Transf (AST/SGOT) 28 U/L 10/25/17 0925 Alanine Aminotransferase (ALT/SGPT) 100 U/L H 10/25/17 0925 Alkaline Phosphatase 66 U/L 10/25/17 0925 Thyroid Stimulating Hormone 3rd Gen 0.500 uIU/ML 10/25/17 0925 Urine Cannabinoids Screen POS H 10/25/17 1130 Ethyl Alcohol Level LESS THAN 3 MG/DL 10/25/17 0925 ED [id number] test negative. EKG has been ordered but not yet obtained. Mental Status Examination Appearance: Disheveled Consciousness: Other (sleepy but easily awakened) Orientation: Person, Place Motor Activity: Other (no motor abnormalities noted) Speech: Slow Language: Adequate Fund of Knowledge: Adequate Attention and Concentration: Easily Distracted Memory: Unremarkable (psychosis interferes) Mood: Other (dysphoric) Affect: Other (restricted) Thought Process & Associations: Disorganized Thought Content: Thought blocking Hallucination Type: Other (appears somewhat internally stimulated) Delusion Type: None Suicidal Ideation: Yes Suicidal Plan: No Suicidal Intention: No Homicidal Ideation: No Homicidal Plan: No Homicidal Intention: No Insight: Poor Judgment: Poor Assessment & Plan Problem List: (1) Other psychotic disorder not due to a substance or known physiological condition ICD Codes: F28 - Other psychotic disorder not due to a substance or known physiological condition (2) Polysubstance abuse ICD Codes: F19.10 - Other psychoactive substance abuse, uncomplicated Status: Acute Assessment & Plan 27-year-old female with psychiatric history as noted above who is presently admitted to the inpatient psychiatric unit under a [facility] act. On my examination today, the patient presents as disorganized, negativistic and internally stimulated. Sister provides history that the patient has had approximately a weeklong episode of mood instability and associated psychotic symptoms. Patient requires psychiatric hospitalization at this time for safety , observation and stabilization. Admit inpatient. Involuntary status. I have completed first opinion. Consult for second opinion. Request healthcare surrogate and guardian advocate. Check extended tox screen. For mood stabilization and psychosis, I will initiate Abilify 10 mg daily with plans to titrate to effect. Given reported issues with medication adherence in the community, we should consider long-acting injectable. Ativan as needed for anxiety, Cogentin as needed for EPS, Benadryl as needed for sleep. Follow up EKG. Vitals every shift. Counselor to see and obtain further collateral. Disposition planning. Estimated length of stay: 7- 9 days. Discharge Planning Pending psychiatric stabilization. Request HC Surrog/Guard Advoc?: Yes Richardson Garcia MD Oct 27, 2017 08:49
[2017-10-27] MEDS: ARIPiprazole 10 MG TAB PO SCH (10:30)
[2017-10-27] MEDS ORDERED: BENZTROPINE MESYLATE 1 MG TAB PO PRN (10:30)
[2017-10-27] MEDS ORDERED: LORazepam 2 MG/ML VIAL IM PRN (10:30)
[2017-10-27] MEDS ORDERED: BENZTROPINE MESYLATE 2 MG/2 ML VIAL IM PRN (10:30)
[2017-10-27 12:52] LABS: BICARBONATE 25.3 MEQ/L (21.0-32.0); BLOOD UREA NITROGEN 19 MG/DL (7-18); CALCIUM 9.1 MG/DL (8.5-10.1); CHLORIDE 108 MEQ/L (98-107); CREATININE 0.69 MG/DL (0.50-1.00); GLOMERULAR FILTRATION RATE 102 ML/MIN (>89); GLUCOSE,RANDOM 64 MG/DL (74-106); SODIUM (NA) 141 MEQ/L (136-145)
[2017-10-27 12:54] LABS: CHOLESTEROL 208 MG/DL (120-200); TRIGLYCERIDES 52 MG/DL (42-150)
[2017-10-27 12:55] LABS: HDL CHOLESTEROL 86.5 MG/DL (40.0-60.0); LDL CHOLESTEROL 111 MG/DL (0-99)
--- NOTE | 2017-10-27 12:59 | PD.PSY.CON ---
Provisional Diagnosis Admission Date Oct 26, 2017 at 16:05 [place] I. 1. Other psychotic disorder Rule out drug-induced mood/psychotic disorder 2. Polysubstance abuse [place] II. Deferred History of Present Illness Service Psychiatry Consult Requested By Psychiatry Reason for Consult Secondary Primary Care Physician No Primary Care Physician HPI Ms. Bae is a 27-year-old female with a history of substance use issues and adjustment disorder who presented to the emergency department, brought in by family out of concern that she was increasingly psychotic and hallucinating. ED provider initiated [facility] act. Patient was evaluated by the psychiatric nurse practitioner who admitted the patient to the inpatient psychiatric unit. Patient was agitated and exit seeking in the emergency department and was medicated with Geodon ETO. Reviewing the electronic medical record, I note the patient has been seen in the ED in the past for substance- related psychiatric symptoms and was admitted briefly under my care in February of last year.Patient seen and examined with nurse. Chart reviewed. Case discussed with nursing staff. On my examination today, the patient is tearful and affect is broadly dysphoric. She is psychomotor slowed and somewhat negativistic. She appears internally stimulated and mutters to herself "Oh my God! Whatever, whatever, whatever." Thought process seems somewhat disorganized. She endorses suicidal ideation but denies homicidal ideation. No cammie delusional material elicited, but it is difficult to ascertain thought content as a consequence of her thought disorder. Psychiatric interview is fairly limited because of patient's current degree of psychiatric decompensation , and I am unable to obtain any meaningful past psychiatric, family, chemical dependency or social history from the patient for the same reason. The patient is a 27 years old woman with psychiatric history of substance dependence, substance-induced psychosis, well known by this service, she has multiple ER visits and admissions related with substance induced psychosis, who was brought by her family to the ER due to increased psychotic behavior and perceptual disturbances. Patient was [facility] acted by the ER doctor. Admitted in psychiatry due to level of psychosis. Consulted for second opinion. On my evaluation the patient is found in her bed, very irritable, disorganized, crying profusely, no answering any of my questions. She says that she doesn't want to talk, and the started screaming nonsensical statements. As per nursing charge the patient has been presenting in this way for many hours now. Past Family Social History Coded Allergies: No Known Allergies (Verified Allergy, Unknown, 1/29/18) Reported Medications Olanzapine (Zyprexa) 5 Mg Tab, 5 MG PO DAILY, #30 TAB 0 Refills 09/21/17 Current Medications Medications (Trade) Dose Ordered Sig/Edmond Route Start Time Stop Time Status Last Admin (Tylenol) 650 mg Q4H PRN PO 10/26/17 16:15 (Milk Of Magnesia Liq) 30 ml DAILY PRN PO 10/26/17 16:15 (Mag-Al Plus Susp Liq) 30 ml Q6H PRN PO 10/26/17 16:15 (Abilify) 10 mg DAILY PO 10/27/17 10:30 10/27/17 10:30 (Ativan) 1 mg Q6H PRN PO 10/27/17 10:30 (Ativan Inj) 1 mg Q6H PRN IM 10/27/17 10:30 (Cogentin) 1 mg Q12HR PRN PO 10/27/17 10:30 (Cogentin Inj) 1 mg Q12HR PRN IM 10/27/17 10:30 (Benadryl) 50 mg HS PRN PO 10/27/17 09:30 Patient's Strengths (min. 2) In a monitored setting. Supportive sister. Physical Exam Vital Signs Vital Signs Date Time Temp Pulse Resp B/P (MAP) Pulse Ox O2 Delivery O2 Flow Rate FiO2 10/26/17 17:39 97.9 86 17 113/77 (89) 99 10/26/17 06:19 Room Air Lab Results Test 10/27/17 11:32 Blood Urea Nitrogen 19 MG/DL Creatinine 0.69 MG/DL Random Glucose 64 MG/DL Calcium Level 9.1 MG/DL Sodium Level 141 MEQ/L Potassium Level 3.6 MEQ/L Chloride Level 108 MEQ/L Carbon Dioxide Level 25.3 MEQ/L Anion Gap 8 MEQ/L Estimat Glomerular Filtration Rate 102 ML/MIN Mental Status Examination Appearance: Disheveled Consciousness: Other (sleepy but easily awakened) Orientation: Person, Place Motor Activity: Other (no motor abnormalities noted) Speech: Slow Language: Adequate Fund of Knowledge: Adequate Attention and Concentration: Easily Distracted Memory: Unremarkable (psychosis interferes) Mood: Other (dysphoric) Affect: Other (restricted) Thought Process & Associations: Disorganized Thought Content: Thought blocking Hallucination Type: Other (appears somewhat internally stimulated) Delusion Type: None Suicidal Ideation: Yes Suicidal Plan: No Suicidal Intention: No Homicidal Ideation: No Homicidal Plan: No Homicidal Intention: No Insight: Poor Judgment: Poor Assessment & Plan Problem List: (1) Other psychotic disorder not due to a substance or known physiological condition ICD Codes: F28 - Other psychotic disorder not due to a substance or known physiological condition (2) Polysubstance abuse ICD Codes: F19.10 - Other psychoactive substance abuse, uncomplicated Status: Acute Assessment & Plan: Patient was seen and evaluated today for second opinion. Pigmentation reviewed. I agree and concur with Dr. Garcia assessment and plan. Assessment & Plan Estimated LOS: days Request HC Surrog/Guard Advoc?: Yes Angel Medellin MD Oct 27, 2017 12:59
--- NOTE | 2017-10-27 15:08 | EKG ---
Date Performed: 10/27/2017 Time Performed: 14:05:43 PTAGE: 27 years EKG: Sinus rhythm WITH SHORT IN INTERVAL BORDERLINE ECG No significant change from prior electrocardiogram. PREVIOUS TRACING : 03/23/2017 18.43 DOCTOR: Aldo Alvarez Interpretating Date/Time 10/27/2017 15:07:09
[2017-10-27 16:29] LABS: HEMOGLOBIN A1C 4.7 % (4.3-6.0)
[2017-10-27 17:04] VITALS: BP 108/58; PULSE 106; RESP 18; TEMP 98.9; O2SAT 100
[2017-10-27] MEDS: LORazepam 1 MG TAB PO PRN (18:07)
[2017-10-28 05:42] VITALS: BP 101/60; PULSE 80; RESP 18; TEMP 97.6; O2SAT 98
[2017-10-28 05:58] VITALS: BP 101/60; PULSE 80; RESP 18; TEMP 97.6; O2SAT 98
[2017-10-28] MEDS: ARIPiprazole 10 MG TAB PO SCH (11:17)
--- NOTE | 2017-10-28 11:43 | HHI.PYPN ---
Subjective Chief Complaint: psychosis Remarks Patient seen and examined with nurse and nursing students. Chart reviewed. Case discussed with nursing staff who reports the patient slept poorly overnight and has been disrobing. On my examination today, the patient describes her mood as "annoyed." She complains of auditory hallucinations although she cannot make out what the voices are saying. She complains of fatigue. No SI or HI voiced. She describes some generalized myalgias and does exhibit some increased tone and possibly some hypomimia on exam. No other physical complaints. No other side effects from medications. Review of Systems ROS Limitations: Psychotic, Poor Historian Except as stated in HPI: all other systems reviewed are Neg Mental Status Examination Appearance: Disheveled Consciousness: Alert Orientation: Person, Place Motor Activity: Other (motor exam as above. No other motoric abnormalities noted.) Speech: Slow Language: Adequate Fund of Knowledge: Adequate Attention and Concentration: Easily Distracted Memory: Unremarkable Mood: Other ("annoyed") Affect: Other (restricted and dysphoric) Thought Process & Associations: Disorganized Thought Content: Thought blocking Hallucination Type: Auditory Delusion Type: None Suicidal Ideation: No Suicidal Plan: No Suicidal Intention: No Homicidal Ideation: No Homicidal Plan: No Homicidal Intention: No Insight: Poor Judgment: Poor Results Labs Labs reviewed. Extended urine toxicology pending. Vitals/IOs Vital Signs Date Time Temp Pulse Resp B/P (MAP) Pulse Ox O2 Delivery O2 Flow Rate FiO2 10/28/17 05:58 97.6 80 18 101/60 (74) 98 10/26/17 06:19 Room Air Assessment & Plan Problem List: (1) Other psychotic disorder not due to a substance or known physiological condition ICD Codes: F28 - Other psychotic disorder not due to a substance or known physiological condition (2) Polysubstance abuse ICD Codes: F19.10 - Other psychoactive substance abuse, uncomplicated Status: Acute Assessment & Plan Add Cogentin for possible EPS. Titrate Abilify to 15 mg daily to target psychotic symptoms and for mood stabilization. Continue to monitor on high acuity unit. Continue other medications and care as ordered. Justification for Cont. Inpt. Med changes. Impairment in reality construction. High risk for decompensation in less restrictive setting. Discharge Planning Pending psychiatric stabilization. Request HC Surrog/Guard Advoc?: Yes Richardson Garcia MD Oct 28, 2017 11:43
[2017-10-28] MEDS: BENZTROPINE MESYLATE 1 MG TAB PO SCH ×2 (13:01→20:26)
[2017-10-28] MEDS: LORazepam 1 MG TAB PO PRN (16:12)
[2017-10-28 16:35] VITALS: BP 109/63; PULSE 76; RESP 16; TEMP 98.4; O2SAT 98
[2017-10-29 06:27] VITALS: BP 120/61; PULSE 101; RESP 16; TEMP 97.6; O2SAT 96
[2017-10-29] MEDS: BENZTROPINE MESYLATE 1 MG TAB PO SCH ×2 (08:01→21:16)
[2017-10-29] MEDS ORDERED: ARIPiprazole 15 MG TAB PO SCH (09:00)
--- NOTE | 2017-10-29 09:55 | HHI.PYPN ---
Subjective Chief Complaint: psychosis Remarks Patient seen and examined with nurse and nursing students. Chart reviewed. Case discussed with nursing staff. No behavioral issues noted overnight. Case discussed in treatment team. On my examination today, the patient is much more relevant and appropriate. There is no evidence of internal stimulation and the patient denies AVH. She continues to complain of some anxiety. She denies SI or HI. Denies paranoia. She attributes her presenting psychiatric decompensation wholly to stress. She minimizes the impact of any substance use. We do discuss the need for chemical dependency treatment following discharge, but the patient seems pre-contemplative with regards to changing her pattern of use. She is supportive of initiating long-acting injectable Abilify. Denies side effects from medications. No physical complaints. Review of Systems Except as stated in HPI: all other systems reviewed are Neg Mental Status Examination Appearance: Appropriate Consciousness: Alert Orientation: Person, Place Motor Activity: Other (no motor abnormalities noted) Speech: Unremarkable Language: Adequate Fund of Knowledge: Adequate Attention and Concentration: Easily Distracted Memory: Unremarkable Mood: Anxious Affect: Appropriate Thought Process & Associations: Intact, Logical, Linear Thought Content: Appropriate Hallucination Type: None Delusion Type: None Suicidal Ideation: No Suicidal Plan: No Suicidal Intention: No Homicidal Ideation: No Homicidal Plan: No Homicidal Intention: No Insight: Fair Judgment: Adequate (fair) Results Labs Labs reviewed. Extended urine toxicology is pending. Vitals/IOs Vital Signs Date Time Temp Pulse Resp B/P (MAP) Pulse Ox O2 Delivery O2 Flow Rate FiO2 10/29/17 06:27 97.6 101 16 120/61 (80) 96 10/26/17 06:19 Room Air Assessment & Plan Problem List: (1) Other psychotic disorder not due to a substance or known physiological condition ICD Codes: F28 - Other psychotic disorder not due to a substance or known physiological condition (2) Polysubstance abuse ICD Codes: F19.10 - Other psychoactive substance abuse, uncomplicated Status: Acute Assessment & Plan Patient seems to be improving with Abilify therapy. Titrate Abilify over the weekend to target residual symptoms. To consider Abilify Maintena. Transfer to lower acuity 2600 unit as patient is now more appropriate for the milieu there. Continue other medications and care as ordered. Justification for Cont. Inpt. Med changes. Discharge Planning possible discharge after the weekend. Request HC Surrog/Guard Advoc?: Yes Richardson Garcia MD Oct 29, 2017 09:55
[2017-10-29] MEDS: LORazepam 1 MG TAB PO PRN ×2 (20:37→21:16)
[2017-10-29] MEDS: diphenhydrAMINE HCL 50 MG CAP PO PRN (21:16)
[2017-10-30 06:16] VITALS: BP 100/51; PULSE 72; RESP 16; TEMP 98.1; O2SAT 99
[2017-10-30] MEDS: ARIPiprazole 15 MG TAB PO SCH (09:31)
[2017-10-30] MEDS: BENZTROPINE MESYLATE 1 MG TAB PO SCH ×2 (09:31→21:14)
[2017-10-30] MEDS: ACETAMINOPHEN 325 MG TAB PO PRN ×2 (11:08→15:07)
--- NOTE | 2017-10-30 14:18 | HHI.PYPN ---
Subjective Chief Complaint: psychosis Remarks Patient was seen and case discussed with nursing. Patient is quite anxious and disorganized. She is hearing voices of her sister calling her name. Thinks internally preoccupied. Labile per nursing crying earlier today. His tolerating her medications well and she remains on the titration schedule with Abilify. Denies suicidal or homicidal ideation intent or plan Mental Status Examination Appearance: Appropriate Consciousness: Alert Orientation: Person, Place Motor Activity: Other (no motor abnormalities noted) Speech: Unremarkable Language: Adequate Fund of Knowledge: Adequate Attention and Concentration: Easily Distracted Memory: Unremarkable Mood: Anxious Affect: Anxious Thought Process & Associations: Disorganized Thought Content: Appropriate Hallucination Type: Auditory (her sister) Delusion Type: None Suicidal Ideation: No Suicidal Plan: No Suicidal Intention: No Homicidal Ideation: No Homicidal Plan: No Homicidal Intention: No Insight: Fair Judgment: Adequate (fair) Results Vitals/IOs Vital Signs Date Time Temp Pulse Resp B/P (MAP) Pulse Ox O2 Delivery O2 Flow Rate FiO2 10/30/17 06:16 98.1 72 16 100/51 (67) 99 Intake and Output 10/30/17 10/30/17 10/31/17 08:00 16:00 00:00 Intake Total 240 ml Balance 240 ml Assessment & Plan Problem List: (1) 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 Inpt. Patient would decompensate in a less restrictive setting Request HC Surrog/Guard Advoc?: Yes Bunny Figueroa DO Oct 30, 2017 14:18
[2017-10-30] MEDS: LORazepam 1 MG TAB PO PRN (15:03)
[2017-10-30 18:15] VITALS: BP 106/53; PULSE 74; RESP 17; TEMP 98.4; O2SAT 96
[2017-10-30] MEDS: diphenhydrAMINE HCL 50 MG CAP PO PRN (22:17)
[2017-10-31 05:57] VITALS: BP 97/60; PULSE 72; RESP 16; TEMP 98.3; O2SAT 97
[2017-10-31] MEDS: BENZTROPINE MESYLATE 1 MG TAB PO SCH ×2 (09:14→20:32)
[2017-10-31] MEDS: ARIPiprazole 15 MG TAB PO SCH (09:14)
[2017-10-31] MEDS: ACETAMINOPHEN 325 MG TAB PO PRN (12:05)
--- NOTE | 2017-10-31 13:59 | HHI.PYPN ---
Subjective Chief Complaint: psychosis Remarks Patient was seen and case discussed with nursing. Patient is quite irritable during the interview. She appears frustrated by being here and with every question that's asked of her. She tells her hands up in annoyance throughout the interview. Insight is poor concerning her admission. Auditory hallucinations from her sister .Affect is labile Mental Status Examination Appearance: Appropriate Consciousness: Alert Orientation: Person, Place Motor Activity: Other (no motor abnormalities noted) Speech: Unremarkable Language: Adequate Fund of Knowledge: Adequate Attention and Concentration: Easily Distracted Memory: Unremarkable Mood: Anxious Affect: Labile, Anxious Thought Process & Associations: Disorganized Thought Content: Appropriate Hallucination Type: Auditory (her sister) Delusion Type: None Suicidal Ideation: No Suicidal Plan: No Suicidal Intention: No Homicidal Ideation: No Homicidal Plan: No Homicidal Intention: No Insight: Fair Judgment: Adequate (fair) Results Vitals/IOs Vital Signs Date Time Temp Pulse Resp B/P (MAP) Pulse Ox O2 Delivery O2 Flow Rate FiO2 10/31/17 05:57 98.3 72 16 97/60 (72) 97 Assessment & Plan Problem List: (1) 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 Inpt. Patient would decompensate in a less restrictive setting Request HC Surrog/Guard Advoc?: Yes Bunny Figueroa DO Oct 31, 2017 13:59
[2017-10-31] MEDS: LORazepam 1 MG TAB PO PRN (18:25)
[2017-10-31 18:54] VITALS: BP 113/71; PULSE 76; RESP 17; TEMP 98.2; O2SAT 98
[2017-10-31] MEDS: diphenhydrAMINE HCL 50 MG CAP PO PRN (20:32)
[2017-11-01 06:15] VITALS: BP 110/58; PULSE 85; RESP 18; TEMP 98.3; O2SAT 96
[2017-11-01] MEDS: ARIPiprazole 15 MG TAB PO SCH (08:24)
[2017-11-01] MEDS: BENZTROPINE MESYLATE 1 MG TAB PO SCH ×2 (08:25→21:21)
--- NOTE | 2017-11-01 11:43 | HHI.PYPN ---
Subjective Chief Complaint: psychosis Remarks Patient seen and examined with nurse. Chart reviewed. Case discussed with nursing staff. On my examination today, the patient's affect seems more labile. She tells me "everything bothers me." She appears somewhat more internally stimulated today. She complains of "people yelling" although I cannot hear anyone yelling. She is quite discharge focused. She denies any suicidal ideation. No side effects from medications. Complaining of dental pain in right lower jaw. No other physical complaints. Review of Systems ROS Limitations: Psychotic, Poor Historian Except as stated in HPI: all other systems reviewed are Neg Mental Status Examination Appearance: Appropriate Consciousness: Alert Orientation: Person, Place Motor Activity: Other (no abnormal motor movements noted) Speech: Unremarkable Language: Adequate Fund of Knowledge: Adequate Attention and Concentration: Easily Distracted Memory: Unremarkable Mood: Other (dysphoric) Affect: Labile, Anxious Thought Process & Associations: Circumstantial Thought Content: Appropriate Hallucination Type: Auditory (internally stimulated) Delusion Type: None Suicidal Ideation: No Suicidal Plan: No Suicidal Intention: No Homicidal Ideation: No Homicidal Plan: No Homicidal Intention: No Insight: Fair (fair at best) Judgment: Adequate (fair at best) Results Labs Labs reviewed. Extended urine toxicology has resulted is positive only for cannabinoids. Vitals/IOs Vital Signs Date Time Temp Pulse Resp B/P (MAP) Pulse Ox O2 Delivery O2 Flow Rate FiO2 11/01/17 06:15 98.3 85 18 110/58 (75) 96 Intake and Output 11/01/17 11/01/17 11/02/17 08:00 16:00 00:00 Intake Total 240 ml Balance 240 ml Assessment & Plan Problem List: (1) Other psychotic disorder not due to a substance or known physiological condition ICD Codes: F28 - Other psychotic disorder not due to a substance or known physiological condition (2) Polysubstance abuse ICD Codes: F19.10 - Other psychoactive substance abuse, uncomplicated Status: Acute Assessment & Plan Improvement noted Wednesday has not persisted through the weekend. Titrate Abilify to 30 mg daily to target residual psychotic symptoms. To consider a mood stabilizer. Orajel as needed for dental pain. Consulted the hospitalist for same. Continue to monitor on the inpatient unit. Continue other medications and care as ordered. Justification for Cont. Inpt. Med changes. Impairment in reality construction. Risk for decompensation in less restrictive environment. Discharge Planning Pending psychiatric stabilization. Case discussed with counselor. Request HC Surrog/Guard Advoc?: Yes Richardson Garcia MD Nov 01, 2017 11:43
[2017-11-01 18:00] VITALS: BP 109/60; PULSE 80; RESP 16; TEMP 97.4; O2SAT 99
[2017-11-01] MEDS: diphenhydrAMINE HCL 50 MG CAP PO PRN (21:21)
[2017-11-01] MEDS: LORazepam 1 MG TAB PO PRN (22:25)
[2017-11-02 06:00] VITALS: BP 103/53; PULSE 69; RESP 16; TEMP 98.2; O2SAT 98
[2017-11-02] MEDS: BENZTROPINE MESYLATE 1 MG TAB PO SCH ×2 (08:12→20:49)
[2017-11-02] MEDS ORDERED: ARIPiprazole 30 MG TAB PO SCH (09:00)
[2017-11-02] MEDS: LORazepam 1 MG TAB PO PRN (09:20)
--- NOTE | 2017-11-02 12:12 | HHI.PYPN ---
Subjective Chief Complaint: psychosis Remarks Patient seen and examined with nurse. Chart reviewed. Case discussed with nursing staff who reports that the patient continues to exhibit odd behavior and affective lability. Case discussed in treatment team. On my examination today, the patient presents as tearful and dysphoric. She reports paranoia and says that she feels like people are talking about her. She says that she has been experiencing phenomena consistent with dj vu although they seem quite real to her. She denies any SI or HI. Sleep is poor. Denies side effects from medications but is unsure if they are helping. No physical complaints besides dental pain. I did endeavor to place a call to her mother/HCS to discuss progress on the unit. Left generic voicemail requesting a call back. Review of Systems ROS Limitations: Psychotic, Poor Historian Except as stated in HPI: all other systems reviewed are Neg Mental Status Examination Appearance: Appropriate Consciousness: Alert Orientation: x4 Motor Activity: Other (no motoric abnormalities noted) Speech: Unremarkable Language: Adequate Fund of Knowledge: Adequate Attention and Concentration: Easily Distracted Memory: Unremarkable Mood: Other (dysphoric) Affect: Labile, Anxious, Other (tearful) Thought Process & Associations: Circumstantial Thought Content: Appropriate Hallucination Type: None Delusion Type: Paranoid Suicidal Ideation: No Suicidal Plan: No Suicidal Intention: No Homicidal Ideation: No Homicidal Plan: No Homicidal Intention: No Insight: Fair (fair at best) Judgment: Adequate (fair at best) Results Labs Labs reviewed Vitals/IOs Vital Signs Date Time Temp Pulse Resp B/P (MAP) Pulse Ox O2 Delivery O2 Flow Rate FiO2 11/02/17 06:00 98.2 69 16 103/53 (70) 98 Intake and Output 11/02/17 11/02/17 11/03/17 08:00 16:00 00:00 Intake Total 240 ml Balance 240 ml Assessment & Plan Problem List: (1) Other psychotic disorder not due to a substance or known physiological condition ICD Codes: F28 - Other psychotic disorder not due to a substance or known physiological condition (2) Polysubstance abuse ICD Codes: F19.10 - Other psychoactive substance abuse, uncomplicated Status: Acute Assessment & Plan Patient is not responding to Abilify dose titration. There are no reported concerns with covert medication nonadherence. She has done better with Zyprexa in the past, and although this does not have a readily available long-acting injectable I think at this point the benefits outweigh the risks. Discontinue Abilify and replace with Zyprexa Zydis 5 mg at bedtime once consent from HCS has been obtained. Continue to monitor on the inpatient unit. Continue other medications and care as ordered. Justification for Cont. Inpt. Med changes. Impairment in reality construction. Risk for decompensation in less restrictive environment. Discharge Planning Pending stabilization Request HC Surrog/Guard Advoc?: Yes Richardson Garcia MD Nov 02, 2017 12:12
--- NOTE | 2017-11-02 13:50 | PD.TTN ---
Patient Problems 1. Discharge planning 2. Medication compliance 3. Knowledge deficit 4. Lack of coping skills Progress Toward Goals Provider Present: Dr. Harshil Garcia Provider Input: Pt medication regiment will be adjusted to include a mood stabilizer. Nurse(s) Present: Teresa Son RN Nurse(s) Input: Pt had a difficult night last night and is tearful, responding to auditory hallucinations, bizarre and reporting she is having "visions". She appears to have decompensated further. Psychiatric Counselors Present: EARLE Rodríguez Psych Therapist Input: PT appears tearful, internally stimulated, withdrawn, isolative, anxious and appropriate. She presents with limited coping and emotional regulation skills at this time. She presents with limited insight into condition and need for care. She has been compliant with medication regiment. Group Spec/RT/OT/TOTH Present: RAMBO Baxter Group Spec/RT/OT/TOTH Input: Pt attends the group activities. She isolates from peers. Discharge Plan [facility] Pt will return to her mother's home after discharge and will be linked with [facility] follow up. Documentation Scribe: EARLE Rodríguez Jonathan LMHC Nov 02, 2017 13:50
[2017-11-02] MEDS: BENZOCAINE 7.5% ORAL GEL 9.4 GM TUBE OROPHARYNG PRN (14:56)
[2017-11-02 17:43] VITALS: BP 102/66; PULSE 87; RESP 17; TEMP 97.3; O2SAT 99
--- NOTE | 2017-11-02 19:23 | PD.CONS ---
HPI Service [facility] Hospitalists Consult Requested By Primary Care Physician No Primary Care Physician Diagnoses: History of Present Illness 27-year-old female with history of polysubstance abuse, currently in psychiatry with psychotic episode, who reports acute on chronic worsening of right lower molar pain. She reports it as a constant sharp pain in the right lower jaw, with whole right face radiation like an electric shock. She denies any chest pain, shortness breath, nausea, vomiting, lightheadedness, dizziness. She does report a history of fainting with new medications in the past. Denies any history of allergy to penicillin or Augmentin. Patient has been prescribed Orajel with little relief Review of Systems Except as stated in HPI: all other systems reviewed are Neg Past Family Social History Allergies: Coded Allergies: No Known Allergies (Verified Allergy, Unknown, 10/25/17) Past Medical History History of syncope with new medications in the past. Past Surgical History Patient denies any past surgical history Active Ordered Medications Current Medications Medications (Trade) Dose Ordered Sig/Edmond Route Start Time Stop Time Status Last Admin (Tylenol) 650 mg Q4H PRN PO 10/26/17 16:15 10/31/17 12:05 (Milk Of Magnesia Liq) 30 ml DAILY PRN PO 10/26/17 16:15 (Mag-Al Plus Susp Liq) 30 ml Q6H PRN PO 10/26/17 16:15 (Ativan) 1 mg Q6H PRN PO 10/27/17 10:30 11/02/17 09:20 (Ativan Inj) 1 mg Q6H PRN IM 10/27/17 10:30 11/02/17 11:00 (Cogentin) 1 mg Q12HR PRN PO 10/27/17 10:30 (Cogentin Inj) 1 mg Q12HR PRN IM 10/27/17 10:30 (Benadryl) 50 mg HS PRN PO 10/27/17 09:30 11/01/17 21:21 (Cogentin) 1 mg Q12HR PO 10/28/17 11:45 11/02/17 08:12 (Baby Orajel 7.5% Oral Gel) 1 applic Q6H PRN OROPHARYNG 11/01/17 16:30 11/02/17 14:56 (ZyPREXA ZYDIS ODT) 5 mg HS PO 11/02/17 21:00 Future Hold Family History Patient is uncertain about her parents medical history Social History Patient smoked one half pack per day for the past 8 years. She denies drinking. She reports occasional marijuana use. Physical Exam Vital Signs Vital Signs Date Time Temp Pulse Resp B/P (MAP) Pulse Ox O2 Delivery O2 Flow Rate FiO2 11/02/17 17:43 97.3 87 17 102/66 (78) 99 11/02/17 06:00 98.2 69 16 103/53 (70) 98 Physical Exam GENERAL: patient sitting up in bed. Appears palpable. Patient examined with nurse present. SKIN: Warm and dry. HEAD: Normocephalic. EYES: No scleral icterus. No injection or drainage. NECK: Supple, trachea midline. No JVD or lymphadenopathy.right lower molar with large cavity. No pus, no abscess. CARDIOVASCULAR: Regular rate and rhythm without murmurs, gallops, or rubs. RESPIRATORY: Breath sounds equal bilaterally. No accessory muscle use. GASTROINTESTINAL: Abdomen soft, non-tender, nondistended. MUSCULOSKELETAL: No cyanosis, or edema. BACK: Nontender without obvious deformity. No CVA tenderness. Assessment and Plan Assessment and Plan //Right lower molar cavity, with extreme pain. -We'll order Augmentin which will treat thsi for now. However she will need to see a dentist soon after discharge. //Patient's reports of syncope with new medications in the past. I suspect this is likely a psychiatric manifestation. No allergies to Augmentin reported , however I would watch patient closely after first dose. //Marijuana and tobacco use. Patient counseled on cessation. /Psychosis. As per psychiatry Discussed Condition With patient, nurse. Anup Vega MD Nov 02, 2017 19:23
[2017-11-02] MEDS: AMOXICILLIN/CLAVULANATE K 875 MG TAB PO SCH (20:48)
[2017-11-02] MEDS ORDERED: OLANZapine ODT 5 MG TAB PO SCH (21:00)
[2017-11-03 06:18] VITALS: BP 92/57; PULSE 71; TEMP 98.2
[2017-11-03] MEDS: BENZTROPINE MESYLATE 1 MG TAB PO SCH ×2 (08:20→21:26)
[2017-11-03] MEDS: AMOXICILLIN/CLAVULANATE K 875 MG TAB PO SCH ×2 (08:20→21:00)
[2017-11-03] MEDS: LORazepam 1 MG TAB PO PRN (08:25)
[2017-11-03] MEDS: ACETAMINOPHEN 325 MG TAB PO PRN (08:25)
--- NOTE | 2017-11-03 11:04 | HHI.PYPN ---
Subjective Chief Complaint: psychosis Remarks Patient seen and examined with nurse. Chart reviewed. Zyprexa not administered as consent could not be obtained. Case discussed with nursing staff who reports that the patient was quite upset at receiving court paperwork for [employer] tomorrow. She is noted to be more paranoid by nursing staff. On my examination today, affect remains labile. She remains paranoid and feels that others are talking about her. She says that "breakfast was a nightmare" because she felt like other people were talking about her. She is quite discharge focused. She denies SI or HI but seems unreliable to contract for safety. She now says that the Abilify was helping and is requesting the long- acting injectable Maintena, however in context it seems clear that the patient is wanting to continue this medication, even though it was not helping, in order to obtain a hastier discharge. No new physical complaints. I was able to reach patient's mother/HCS today. She remains concerned about the patient's mental state. She does not think that the patient is ready for discharge. She worries the patient will become medication non-adherent as she has in the past and decompensate. We discuss R/B/A for various pharmacotherapeutic options for patient's ongoing psychotic symptoms as it does not seem like the Abilify was really helping. We settle on a trial of Risperdal as this agent will give us the option of a long-acting injectable. I spent about 18 minutes and telephone consultation with the patient's mother. Review of Systems ROS Limitations: Psychotic, Poor Historian Except as stated in HPI: all other systems reviewed are Neg Mental Status Examination Appearance: Appropriate Consciousness: Alert Orientation: x4 Motor Activity: Other (no motor abnormalities noted) Speech: Unremarkable Language: Adequate Fund of Knowledge: Adequate Attention and Concentration: Easily Distracted Memory: Unremarkable Mood: Other (remains dysphoric) Affect: Labile, Other (tearful) Thought Process & Associations: Circumstantial Thought Content: Appropriate Hallucination Type: None Delusion Type: Paranoid Suicidal Ideation: No Suicidal Plan: No Suicidal Intention: No Homicidal Ideation: No Homicidal Plan: No Homicidal Intention: No Insight: Fair (fair at best) Judgment: Adequate (fair at best) Results Labs Labs reviewed. No new labs. Vitals/IOs Vital Signs Date Time Temp Pulse Resp B/P (MAP) Pulse Ox O2 Delivery O2 Flow Rate FiO2 11/03/17 06:18 98.2 71 92/57 (69) 11/02/17 17:43 17 99 Assessment & Plan Problem List: (1) Other psychotic disorder not due to a substance or known physiological condition ICD Codes: F28 - Other psychotic disorder not due to a substance or known physiological condition (2) Polysubstance abuse ICD Codes: F19.10 - Other psychoactive substance abuse, uncomplicated Status: Acute Assessment & Plan Discontinue Zyprexa and initiate Risperdal M tabs 1 mg twice daily with plans to titrate to effect. To consider long-acting injectable Risperdal Consta or Invega Sustenna. Continue to monitor on the inpatient unit. Continue other medications and care as ordered. Justification for Cont. Inpt. Med changes. Impairment in reality construction. Risk for decompensation in less restrictive environment. Discharge Planning Pending outcome of [address]. Request HC Surrog/Guard Advoc?: Yes Richardson Garcia MD Nov 03, 2017 11:04
[2017-11-03] MEDS: risperiDONE ODT 1 MG TAB PO SCH ×2 (11:16→21:26)
[2017-11-03] MEDS: diphenhydrAMINE HCL 50 MG CAP PO PRN (21:26)
[2017-11-04 06:21] VITALS: BP 89/51; PULSE 75; RESP 16; TEMP 97.8; O2SAT 97
[2017-11-04 07:55] VITALS: BP 124/58; PULSE 66; RESP 15; TEMP 98.2; O2SAT 98
[2017-11-04 08:02] VITALS: BP 124/56; PULSE 87
[2017-11-04 08:03] VITALS: BP 132/88; PULSE 110
[2017-11-04] MEDS: BENZTROPINE MESYLATE 1 MG TAB PO SCH ×2 (08:28→21:48)
[2017-11-04] MEDS: LORazepam 1 MG TAB PO PRN (08:28)
[2017-11-04] MEDS: AMOXICILLIN/CLAVULANATE K 875 MG TAB PO SCH ×2 (08:28→21:48)
[2017-11-04] MEDS: risperiDONE ODT 1 MG TAB PO SCH (08:28)
--- NOTE | 2017-11-04 12:55 | HHI.PYPN ---
Subjective Chief Complaint: psychosis Remarks Patient seen and case discussed with nursing staff. Chart reviewed. For me today, patient remains somewhat dysphoric. She appears somewhat internally preoccupied. Her case was presented to [place] [address] and was placed in continuance for 2 weeks with mother to serve as HCS. No evident side effects from medications. Review of Systems Other No physical complaints today. Mental Status Examination Appearance: Appropriate Consciousness: Alert Orientation: Person, Place (at least) Motor Activity: Other (no abnormal motor movements noted) Speech: Unremarkable Language: Adequate Fund of Knowledge: Adequate Attention and Concentration: Easily Distracted Memory: Unremarkable Mood: Other (dysphoric) Affect: Other (restricted) Thought Process & Associations: Circumstantial Thought Content: Appropriate Hallucination Type: Other Delusion Type: Other (no cammie delusions) Suicidal Ideation: No Suicidal Plan: No Suicidal Intention: No Homicidal Ideation: No Homicidal Plan: No Homicidal Intention: No Insight: Fair (fair at best) Judgment: Adequate (fair at best) Results Labs Labs reviewed. Vitals/IOs Vital Signs Date Time Temp Pulse Resp B/P (MAP) Pulse Ox O2 Delivery O2 Flow Rate FiO2 11/04/17 08:03 110 132/88 (103) 11/04/17 07:55 98.2 15 98 Assessment & Plan Problem List: (1) Other psychotic disorder not due to a substance or known physiological condition ICD Codes: F28 - Other psychotic disorder not due to a substance or known physiological condition (2) Polysubstance abuse ICD Codes: F19.10 - Other psychoactive substance abuse, uncomplicated Status: Acute Assessment & Plan Continue Risperdal 1mg BID with plans for further titration to effect and as tolerated. Patient was a little hypotensive this morning, and so I will hold off on titrating today to ensure she tolerates this agent well. Continue to monitor on inpatient unit. Continue other medications and care as ordered. Justification for Cont. Inpt. Anticipated medication changes. Risk for decompensation in less restrictive environment. Discharge Planning Pending psychiatric stabilization. Request HC Surrog/Guard Advoc?: Yes Richardson Garcia MD Nov 04, 2017 12:55
[2017-11-04 17:30] VITALS: BP 100/58; PULSE 88; RESP 18; TEMP 98.3; O2SAT 99
[2017-11-04] MEDS ORDERED: risperiDONE ODT 2 MG TAB PO SCH (21:00)
[2017-11-04] MEDS: risperiDONE ODT 2 MG TAB PO SCH (21:48)
[2017-11-04] MEDS: diphenhydrAMINE HCL 50 MG CAP PO PRN (21:48)
[2017-11-05 05:26] VITALS: BP 101/57; PULSE 83; RESP 18; TEMP 97.8; O2SAT 99
[2017-11-05] MEDS: risperiDONE ODT 2 MG TAB PO SCH (09:18)
[2017-11-05] MEDS: AMOXICILLIN/CLAVULANATE K 875 MG TAB PO SCH ×2 (09:18→21:00)
[2017-11-05] MEDS: BENZTROPINE MESYLATE 1 MG TAB PO SCH ×2 (09:18→21:00)
[2017-11-05 09:42] LABS: ALBUMIN 3.5 GM/DL (3.4-5.0); DIRECT BILIRUBIN ADULT 0.2 MG/DL (0.0-0.2)
[2017-11-05 09:48] LABS: INDIRECT BILIRUBIN 0.6 MG/DL (0.0-0.8); TOTAL BILIRUBIN ADULT 0.8 MG/DL (0.2-1.0); TOTAL PROTEIN 6.2 GM/DL (6.4-8.2)
[2017-11-05] MEDS: BENZOCAINE 7.5% ORAL GEL 9.4 GM TUBE OROPHARYNG PRN (10:26)
[2017-11-05] MEDS: ACETAMINOPHEN 325 MG TAB PO PRN (10:27)
--- NOTE | 2017-11-05 11:35 | HHI.PYPN ---
Subjective Chief Complaint: psychosis Remarks Patient seen and examined with nurse. Chart reviewed. Case discussed with nursing staff. Case discussed in treatment team. On my examination today, the patient is somewhat more interactive. She is able to attend a little bit of project group prior to our meeting. She remains a little paranoid and continues to complain of feeling anxious in groups. Some ongoing affective lability. Overall, though, she seems to be improving from a psychiatric standpoint. Denies side effects from medications besides some mild tiredness. No physical complaints. Review of Systems Except as stated in HPI: all other systems reviewed are Neg Mental Status Examination Appearance: Appropriate Consciousness: Alert Orientation: x4 Motor Activity: Other (no motor abnormalities noted.) Speech: Unremarkable Language: Adequate Fund of Knowledge: Adequate Attention and Concentration: Easily Distracted Memory: Unremarkable Mood: Other (dysphoric) Affect: Labile (mild) Thought Process & Associations: Intact Thought Content: Appropriate Hallucination Type: None Delusion Type: Paranoid Suicidal Ideation: No Suicidal Plan: No Suicidal Intention: No Homicidal Ideation: No Homicidal Plan: No Homicidal Intention: No Insight: Fair Judgment: Adequate (fair) Results Labs Test 11/05/17 08:20 Total Bilirubin 0.8 MG/DL Direct Bilirubin 0.2 MG/DL Indirect Bilirubin 0.6 MG/DL Aspartate Amino Transf (AST/SGOT) 13 U/L Alanine Aminotransferase (ALT/SGPT) 20 U/L Alkaline Phosphatase 56 U/L Total Protein 6.2 GM/DL Albumin 3.5 GM/DL Labs reviewed. LFTs unremarkable. Vitals/IOs Vital Signs Date Time Temp Pulse Resp B/P (MAP) Pulse Ox O2 Delivery O2 Flow Rate FiO2 11/05/17 05:26 97.8 83 18 101/57 (72) 99 Assessment & Plan Problem List: (1) Other psychotic disorder not due to a substance or known physiological condition ICD Codes: F28 - Other psychotic disorder not due to a substance or known physiological condition (2) Polysubstance abuse ICD Codes: F19.10 - Other psychoactive substance abuse, uncomplicated Status: Acute Assessment & Plan Plan to titrate Risperdal over the weekend to target residual psychotic symptoms. I did endeavor to discuss with patient her options regarding long- acting injectable at a level appropriate to her current degree of impairment. We might consider initiating long-acting injectable after the weekend. Continue to monitor on the inpatient unit. Continue other medications and care as ordered. Justification for Cont. Inpt. Med changes. Resolving impairment in reality construction. Risk for decompensation in less restrictive environment. Discharge Planning Possible discharge beginning of next week. Request HC Surrog/Guard Advoc?: Yes Richardson Garcia MD Nov 05, 2017 11:35
--- NOTE | 2017-11-05 19:04 | HHI.PR ---
Objective Vital Signs Date Time Temp Pulse Resp B/P (MAP) Pulse Ox O2 Delivery O2 Flow Rate FiO2 11/05/17 05:26 97.8 83 18 101/57 (72) 99 Objective Remarks GENERAL: patient sitting up in bed. No acute distress. SKIN: Warm and dry. HEAD: Normocephalic. Whereas previously patient with tenderness to palpation of right lower molar through cheek, today much improved without any tenderness. A/P Assessment and Plan //Right lower molar cavity, with extreme pain. -We'll order Augmentin which will treat thsi for now. However she will need to see a dentist soon after discharge. = Continue Augmentin to complete treatment course. Close follow-up with dentist as outpatient. //Patient's reports of syncope with new medications in the past. I suspect this is likely a psychiatric manifestation. No allergies to Augmentin reported , however I would watch patient closely after first dose. //Marijuana and tobacco use. Patient counseled on cessation. /Psychosis. As per psychiatry Discharge Planning medicine will sign off. Please call with any questions. Close follow-up with dentist as outpatient. Case management consult to provide patient with low cost dental clinic information. Anup Vega MD Nov 05, 2017 19:04
[2017-11-05] MEDS: risperiDONE ODT 1 MG TAB PO SCH (21:00)
[2017-11-06 06:19] VITALS: BP 97/54; PULSE 82; RESP 18; TEMP 97.8; O2SAT 98
[2017-11-06] MEDS: risperiDONE ODT 1 MG TAB PO SCH ×2 (09:33→21:00)
[2017-11-06] MEDS: BENZTROPINE MESYLATE 1 MG TAB PO SCH ×2 (09:33→21:00)
[2017-11-06] MEDS: AMOXICILLIN/CLAVULANATE K 875 MG TAB PO SCH ×2 (09:33→21:00)
--- NOTE | 2017-11-06 15:39 | HHI.PYPN ---
Subjective Chief Complaint: psychosis Remarks Pt seen and discussed with staff. She has been less internally stimulated and more organized in thought process. She c/o of paranoia and anxiety today. She is cooperative with medications and denies side effects. She has been participating in therapeutic activities. No SI/HI Mental Status Examination Appearance: Appropriate Consciousness: Alert Orientation: x4 Motor Activity: Other (no motor abnormalities noted.) Speech: Unremarkable Language: Adequate Fund of Knowledge: Adequate Attention and Concentration: Easily Distracted Memory: Unremarkable Mood: Other (dysphoric) Affect: Labile (mild) Thought Process & Associations: Intact Thought Content: Appropriate Hallucination Type: None Delusion Type: Paranoid Suicidal Ideation: No Suicidal Plan: No Suicidal Intention: No Homicidal Ideation: No Homicidal Plan: No Homicidal Intention: No Insight: Fair Judgment: Adequate (fair) Results Vitals/IOs Vital Signs Date Time Temp Pulse Resp B/P (MAP) Pulse Ox O2 Delivery O2 Flow Rate FiO2 11/06/17 06:19 97.8 82 18 97/54 (68) 98 Assessment & Plan Problem List: (1) Other psychotic disorder not due to a substance or known physiological condition ICD Codes: F28 - Other psychotic disorder not due to a substance or known physiological condition (2) Polysubstance abuse ICD Codes: F19.10 - Other psychoactive substance abuse, uncomplicated Status: Acute Assessment & Plan Continue current tx plan. Estimated LOS: days Justification for Cont. Inpt. risk of decompensation Request HC Surrog/Guard Advoc?: Yes Lilian Alegria MD Nov 06, 2017 15:39
[2017-11-06 18:00] VITALS: BP 101/61; PULSE 81; RESP 20; TEMP 98.1; O2SAT 99
[2017-11-07 05:32] VITALS: BP 97/55; PULSE 88; RESP 18; TEMP 98.1; O2SAT 98
[2017-11-07] MEDS: BENZTROPINE MESYLATE 1 MG TAB PO SCH ×2 (08:22→20:37)
[2017-11-07] MEDS: risperiDONE ODT 1 MG TAB PO SCH ×2 (08:22→20:37)
[2017-11-07] MEDS: AMOXICILLIN/CLAVULANATE K 875 MG TAB PO SCH ×2 (08:22→20:37)
--- NOTE | 2017-11-07 14:15 | HHI.PYPN ---
Subjective Chief Complaint: psychosis Remarks Pt seen and discussed with staff. She has been withdrawn and spending most of day in room. She has been compliant with medications and denies side effects. Mood is depressed. No SI/HI. Mental Status Examination Appearance: Appropriate Consciousness: Alert Orientation: x4 Motor Activity: Other (no motor abnormalities noted.) Speech: Unremarkable Language: Adequate Fund of Knowledge: Adequate Attention and Concentration: Easily Distracted Memory: Unremarkable Mood: Other (depressed) Affect: Flat Thought Process & Associations: Intact Thought Content: Appropriate Hallucination Type: None Delusion Type: Paranoid Suicidal Ideation: No Suicidal Plan: No Suicidal Intention: No Homicidal Ideation: No Homicidal Plan: No Homicidal Intention: No Insight: Fair Judgment: Adequate (fair) Results Vitals/IOs Vital Signs Date Time Temp Pulse Resp B/P (MAP) Pulse Ox O2 Delivery O2 Flow Rate FiO2 11/07/17 05:32 98.1 88 18 97/55 (69) 98 Intake and Output 11/07/17 11/07/17 11/08/17 08:00 16:00 00:00 Intake Total 240 ml 240 ml Balance 240 ml 240 ml Assessment & Plan Problem List: (1) Other psychotic disorder not due to a substance or known physiological condition ICD Codes: F28 - Other psychotic disorder not due to a substance or known physiological condition (2) Polysubstance abuse ICD Codes: F19.10 - Other psychoactive substance abuse, uncomplicated Status: Acute Assessment & Plan Continue current tx plan. Estimated LOS: days Justification for Cont. Inpt. risk of decompensation Request HC Surrog/Guard Advoc?: Yes Lilian Alegria MD Nov 07, 2017 14:15
[2017-11-07] MEDS: ACETAMINOPHEN 325 MG TAB PO PRN (16:06)
[2017-11-07 18:54] VITALS: BP 115/65; PULSE 88; RESP 18; TEMP 98; O2SAT 99
[2017-11-08 06:13] VITALS: BP 120/56; PULSE 99; RESP 18; TEMP 98.9; O2SAT 97
[2017-11-08] MEDS: risperiDONE ODT 1 MG TAB PO SCH (08:52)
[2017-11-08] MEDS: BENZTROPINE MESYLATE 1 MG TAB PO SCH (08:52)
[2017-11-08] MEDS: AMOXICILLIN/CLAVULANATE K 875 MG TAB PO SCH (08:52)
[2017-11-08] MEDS ORDERED: PALI156P IM (11:33)
[2017-11-08] MEDS ORDERED: Benztropine PO (11:33)
--- NOTE | 2017-11-08 11:33 | HHI.DS ---
Psychiatry Discharge Summary Inpatient Psychiatric care?: Yes Advance Directive: No Reason Not Provided: Due to Patient Condition Mental Health AdvanceDirective: No Health Care Proxy: No Admission Admission Date Oct 26, 2017 at 16:05 Admission Diagnosis: (1) Other psychotic disorder not due to a substance or known physiological condition ICD Code: F28 - Other psychotic disorder not due to a substance or known physiological condition (2) Polysubstance abuse ICD Code: F19.10 - Other psychoactive substance abuse, uncomplicated Brief History Ms. Bae is a 27-year-old female with a history of substance use issues and adjustment disorder who presented to the emergency department, brought in by family out of concern that she was increasingly psychotic and hallucinating. ED provider initiated Bellamy act. Patient was evaluated by the psychiatric nurse practitioner who admitted the patient to the inpatient psychiatric unit. Patient was agitated and exit seeking in the emergency department and was medicated with Geodon ETO. Reviewing the electronic medical record, I note the patient has been seen in the ED in the past for substance- related psychiatric symptoms and was admitted briefly under my care in February of last year. Patient seen and examined with nurse. Chart reviewed. Case discussed with nursing staff. On my examination today, the patient is tearful and affect is broadly dysphoric. She is psychomotor slowed and somewhat negativistic. She appears internally stimulated and mutters to herself "Oh my God! Whatever, whatever, whatever." Thought process seems somewhat disorganized. She endorses suicidal ideation but denies homicidal ideation. No cammie delusional material elicited, but it is difficult to ascertain thought content as a consequence of her thought disorder. Psychiatric interview is fairly limited because of patient's current degree of psychiatric decompensation, and I am unable to obtain any meaningful past psychiatric, family, chemical dependency or social history from the patient for the same reason. Tobacco Use In Past 30 Days: No Tobacco Past 30 Days Alcohol Use: Monthly or Less Hospital Course Patient was admitted to a locked, inpatient psychiatric unit. A general medical consultation was obtained. Appropriate precautions were in place throughout patient's hospital stay. Patient was seen and examined on the unit by psychiatry and also visited by counselor. Psychotropic medications were adjusted. Patient was started on long-acting injectable Invega Sustenna. Presenting psychiatric symptomatology improved during the course of patient's hospital stay. There has been no evidence of any suicidality or homicidality on the inpatient unit. Patient was transitioned from higher acuity unit to lower acuity unit and is tolerating the milieu of the lower acuity unit well. On the day of discharge: Patient seen and examined with nurse. Chart reviewed. Case discussed with nursing staff. Case discussed with counselor. On my examination today, the patient is requesting discharge from the inpatient psychiatric unit today. She denies any suicidal or homicidal ideation, intent or plan on direct questioning and contracts for safety. Mood is fair and I can elicit no depressive or hypomanic/manic symptoms. She denies any audiovisual hallucinations. Paranoia is considerably attenuated versus earlier in the hospital stay, and I can elicit no other delusional material. There is no evidence of any self-care deficit. She denies side effects from medications. No physical complaints besides dental pain, and the patient is to follow up with a dentist. I have obtained collateral from patient's mother/healthcare surrogate on the day of discharge. She feels that the patient is improved and notes that she seems "happier." She is comfortable with having the patient return home today. I have recommended that the patient's mother secure the home of potential means of harm to self/others out of an abundance of caution. Suicide and violence risk assessment on day of discharge both suggest lower imminent risk, and the patient's level of function is adequate for outpatient care. Patient does not meet criteria for ongoing involuntary psychiatric hospitalization and is requesting discharge from the inpatient psychiatric unit today. I did offer to retain the patient voluntarily on the inpatient unit for additional observation, but she has declined. I have no basis to retain the patient over her objection any longer. I will discharge patient home with psychiatric follow-up as arranged by counselor. Patient is also to follow-up with primary care and with dentist. Patient to abstain from substances of abuse. I have counseled the patient regarding warning signs for need to return to the psychiatric emergency room as part of a general safety plan. Results Blood Pressure 120 / 56 Vital Signs Date Time Temp Pulse Resp B/P (MAP) Pulse Ox O2 Delivery O2 Flow Rate FiO2 11/08/17 06:13 98.9 99 18 120/56 (77) 97 Laboratory Results Test 10/27/17 11:32 Cholesterol Level 208 MG/DL (120-200) HDL Cholesterol 86.5 MG/DL (40.0-60.0) Hemoglobin A1c 4.7 % (4.3-6.0) LDL Cholesterol 111 MG/DL (0-99) Triglycerides Level 52 MG/DL (42-150) Summary of Procedures None done Imaging Last Impressions Gall Bladder Ultrasound 10/25/17 0000 Signed Impressions: Service Date/Time: Wednesday, October 25, 2017 11:08 - CONCLUSION: Unremarkable exam. The gallbladder is within normal limits. Kwabena Luz MD Pending results at discharge: No Medications # of Antipsychotic meds at D/C: 1 Approp Antipsych med options 1 - Minimum of three failed multiple trials of monotherapy. 2 - Documented plan to taper to monotherapy due to previous use of multiple meds OR cross-taper in progress at D/C. 3 - Documentation of augmentation of Clozapine. 4 - Justification other than those listed in allowable values 1-3, document here : Discharge Discharge Date: Nov 08, 2017 Discharge Diagnosis: (1) Other psychotic disorder not due to a substance or known physiological condition Diagnosis: Principal (stabilized) ICD Code: F28 - Other psychotic disorder not due to a substance or known physiological condition (2) Polysubstance abuse Diagnosis: Secondary ICD Code: F19.10 - Other psychoactive substance abuse, uncomplicated Status: Acute Pt Condition on Discharge: Stable Discharge Disposition: Discharge Home Discharge Instructions Diet Instructions: As Tolerated, No Restrictions Activities you can perform: Weight Bearing as Ruiz Scheduled Appointment: Mitesh Oakley Appointment Date: Nov 08, 2017 Appointment Time: 2:00 pm New Medications: Paliperidone Palmitate Inj (Invega Sustenna Inj) 156 Mg/Ml Inj 156 MG IM Q28D for MENTAL HEALTH, #1 VIAL 0 Refills THIS DOSE OF INVEGA SUSTENNA IS DUE ON 11/15/2017. [Benztropine] () 1 MG TAB 1 MG PO Q12HR for SIDE EFFECT MANAGEMENT for 15 Days, 1 Refill Discontinued Medications: Olanzapine (Zyprexa) 5 Mg Tab 5 MG PO DAILY, #30 TAB 0 Refills Discharge Time > 30 minutes Mental Status Examination Appearance: Appropriate Consciousness: Alert Orientation: x4 Motor Activity: Normal gait, Other (no hand tremor, no dystonia, no dyskinesia , no other motor abnormalities noted.) Speech: Unremarkable Language: Adequate Fund of Knowledge: Adequate Attention and Concentration: Adequate Memory: Unremarkable Mood: Appropriate Affect: Appropriate Thought Process & Associations: Intact, Logical, Linear Thought Content: Appropriate Hallucination Type: None Delusion Type: Other (Minimal residual paranoia. No other delusional material. ) Suicidal Ideation: No Suicidal Plan: No Suicidal Intention: No Homicidal Ideation: No Homicidal Plan: No Homicidal Intention: No Insight: Fair Judgment: Adequate (fair) Discharge/Advance Care Plan Health Problems: (1) Other psychotic disorder not due to a substance or known physiological condition (2) Polysubstance abuse Goals to promote your health * To prevent worsening of your condition and complications * To maintain your health at the optimal level Directions to meet your goals Take your medications as prescribed Follow your dietary instruction Follow activity as directed Keep your appointments as scheduled Take your immunizations and boosters as scheduled If your symptoms worsen call your PCP, if no PCP go to Urgent Care Center or Emergency Room For 19/04 questions related to your inpatient stay or results of tests pending at discharge, please contact Dr. Richardson Garcia at Smoking is Dangerous to Your Health. Avoid second hand smoking Richardson Garcia MD Nov 08, 2017 11:33
[2017-11-08] MEDS ORDERED: PALIPERIDONE PALMITATE 234 MG/1.5 ML SYRINGE IM ONE (12:00)
== END 2017-11-08 14:30 | disposition home or self-care (01) | DRG 885 ==
LOC: NEPC 08:31 → NEDA 10-26 16:05 → H260 10-26 17:27 → H270 10-26 18:38 → H260 10-29 16:21
PROVIDERS: ADMIT Psychiatry & Neurology Psychiatry; ATTEND Psychiatry & Neurology Psychiatry
DX: F28 Other psychotic disorder not due to a substance or known physiological condition (principal); I95.9 Hypotension, unspecified; R45.851 Suicidal ideations; F17.210 Nicotine dependence, cigarettes, uncomplicated; K02.9 Dental caries, unspecified; F19.10 Other psychoactive substance abuse, uncomplicated; F12.90 Cannabis use, unspecified, uncomplicated; F20.9 Schizophrenia, unspecified; F31.9 Bipolar disorder, unspecified; F41.9 Anxiety disorder, unspecified; R73.03 Prediabetes
CPT/HCPCS: 76705; 80048; 80053; 80061; 80076; 80307; 83036; 84443; 84703; 85025; 93005; 96372; 96374; G0481; J1200; J2060; J2250; J2426; J3486; Q0163